=== PATIENT | female | born 1940 | race Caucasian/White ===

== ENCOUNTER 2018-08-31 12:47 | Inpatient (IN) | payer OTHER ==
--- OUTSIDE RECORDS SUMMARY | 2018-08-31 16:20 | XMS REPORT | Encounter Summary ---
:1940 Author Care Team Providers Name Role Phone Roxanne Mercer Primary Care Provider [phone] Reason for Visit Follow Up Visit Instructions 1. Ascites ascites: care instructions ultrasound guided paracentesis Discussion Note: None recorded. Plan of Care Reminders Provider Appointments None recorded. Lab None recorded. Referral None recorded. Procedures None recorded. Surgeries Ultrasound [place] Guided [facility]acentesis [facility] Imaging None recorded. Medications Name Start Date BD Ultra-Fine Mini Pen Needle 31 gauge x 3/16" fluconazole 150 mg tablet furosemide 40 mg tablet lactulose 10 gram/15 mL oral solution Lantus Solostar U-100 Insulin 100 unit/mL (3 mL) subcutaneous pen lisinopril 20 mg tablet lovastatin 10 mg tablet meclizine 25 mg tablet metformin 1,000 mg tablet metoprolol succinate ER 25 mg tablet,extended release 24 hr spironolactone 100 mg tablet Tradjenta 5 mg tablet tramadol 50 mg tablet Victoza 2-José Manuel 0.6 mg/0.1 mL (18 mg/3 mL) subcutaneous pen injector Medications Administered None recorded. Vitals Height Weight BMI Blood Pressure 5 ft 2 in 173 lbs 31.6 kg/m2 143/53 mm[Hg] Lab Results None recorded. Allergies Code Code System Name Reaction Severity Status Onset NKDA Problems No Known Problems Procedures Date Name Performed by 12/31/2017 Peritoneocentesis, Abdominal Information not available Paracentesis, or Peritoneal Lavage (Surg) 04/06/2016 Egd Biopsy Single/multiple Information not available 04/06/2016 Colonoscopy with Biopsy Information not available 02/01/2016 Egd Biopsy Single/multiple Information not available Lap Cholecystectomy Information not available Vaccine List None recorded. Social History Smoking Status Never Smoker Past Encounters 04/11/2018 Ascites Lucio Eddy, DO: [address] [facility], [address], [place] [address], Ph. [phone] History of Present Illness Abdominal Pain Reported By: Patient Abdominal Pain: Location: LLQ, LUQ, RLQ, RUQ; abdominal bloating/fluid. Quality: bloating. Severity: moderate. Duration: constant. Onset/Timing: worse. Modifying Factors: nothing gives relief. Associated Symptoms: no fever, no chills, no blood in the urine, no heartburn, no shortness of breath Review of Systems General Surgery ROS Reported By: Patient Constitutional: Constitutional: no fever, no night sweats, no significant weight gain, no significant weight loss, no exercise intolerance Eyes: Eyes: no dry eyes, no irritation, no vision change ENMT: Ears: no difficulty hearing, no ear pain. Nose: no frequent nosebleeds, no nose/sinus problems. Mouth/Throat: no sore throat, no bleeding gums, no snoring, no dry mouth, no mouth ulcers, no oral abnormalities, no teeth problems, No Post Nasal Dripping, Constantly clearing the throat, hiccups, itching throat, (normal) weak voice: constant Respiratory: Respiratory: no cough, no wheezing, no shortness of breath, no coughing up blood Cardiovascular: Cardiovascular: no chest pain, no arm pain on exertion, no shortness of breath when walking, no shortness of breath when lying down, no palpitations, no known heart murmur Gastrointestinal: Gastrointestinal: no abdominal pain, no vomiting, normal appetite, no diarrhea, not vomiting blood Genitourinary: Genitourinary: no incontinence, no difficulty urinating, no hematuria, no increased frequency Musculoskeletal: Musculoskeletal: no muscle aches, no muscle weakness, no arthralgias/joint pain, no back pain, no swelling in the extremities Integumentary: Skin: no abnormal mole, no jaundice, no rashes Neurologic: Neurologic: no loss of consciousness, no weakness, no numbness, no seizures, no dizziness, no headaches Physical Exam General Surgery Exam ([facility]) Reported By: Patient Head: Head: normocephalic, atraumatic Neck: Neck: no enlargement, no jugular venous distention, no lymphadenopathy Breast/Thorax: Breast: unlabored Cardiovascular: Heart Auscultation: regular rate and rhythm, no murmurs, no gallops, no rubs Lungs: CTAB breath sounds normal, good air movement, clear to auscultation, no wheezing, no rales/crackles, no rhonchi Back: Lumbar / Lumbosacral Spine normal flexion, normal extension, no spasms, palpation tenderness none Abdomen: Inspection and Palpation: soft, no tenderness, no masses, distended. Hernia: none palpable Neurologic: Cranial Nerves: grossly intact
--- OUTSIDE RECORDS SUMMARY | 2018-08-31 16:20 | XMS REPORT | Continuity of Care Document ---
:1940 Author Organization [facility] Address [address] [place] [address] Phone Unavailable Care Team Providers Name Role Phone CASEY HOLLAND MD Primary Care Physician Insurance Providers Guarantor Stephanie Henao Address [address] [place] [address] Email [email or web address] Medicare Policy Number [id number] Subscriber's Name Stephanie Henao Relationship Self / Same As Patient Group Number NA Group Name NA Payer [facility] Claims Policy Number [id number] Subscriber's Name Stephanie Henao Relationship Self / Same As Patient Group Number PLAN G Group Name NA Advance Directives Directive Response Recorded Date/Time Advance Directive on File No 01/28/18 3:25pm Patient/Family Given Education Material R/T Y - 01/28/18...[place] 01/28/18 3: 25pm Directives? Chief Complaint and Reason for Visit Chief Complaint HEPATIC ENCEPHALOPATHY/CIRRHOSIS OF LIVER Reason for Visit Altered mental status Ascites Altered mental status Ascites Cirrhosis of liver Diabetes type 2, uncontrolled Renal insufficiency Problems Medical Problem Onset Date Status Altered mental status Unknown Ascites Unknown Cirrhosis of liver Unknown Diabetes type 2, uncontrolled Unknown Peptic ulcer disease Unknown Acute Renal insufficiency Unknown Severe anemia Unknown Acute Upper gastrointestinal bleed Unknown Acute Past Problems Medical Problem Onset Date Status Cirrhosis of liver Unknown Acute Hepatic encephalopathy Unknown Acute Medications Current Home Medications Medication Dose Units Route Directions Days Qty Instructions Start Date Furosemide 1 Tab ORAL Daily 90 (Lasix 40 Mg*) Tablet 40 Mg Tab Insulin Glargine 30 U SUBCUTANEOUS Twice A Day * (Lantus Solostar *) Inj Linagliptin * 1 Tab ORAL Daily 90 (Tradjenta 5 Mg Tablet *) 5 Mg Tab Lovastatin 10 Mg ORAL Once Daily (Lovastatin 20 At Bedtime Mg (Mevacor) *) 20 Mg Tab Spironolactone 1 Tab ORAL Daily 30 (Spironolactone Tablet 100 Mg *) 100 Mg Tab Past Home Medications Medication Directions Ordered Status Liraglutide (Victoza) 18 Mg/3 Ml Inj, 1.2 Mg Daily Discontinued Subcutaneous Lisinopril (Prinivil 20 Mg*) 20 Mg Tab, 1 Tab Oral Daily Discontinued Metformin Hcl (Glucophage 1000 Mg *) 1 000 Tab, 1 Twice A Day Discontinued Tab Oral Social History Social History Problem Response Recorded Date/Time Onset Date Status Hx Alcohol Use No 01/28/2018 3:31pm Not Applicable Not Applicable Smoking Status Start Date Stop Date Never smoker Hospital Discharge Instructions No hospital discharge instruction information available. Plan of Care Discharge Date 01/31/18 10:57am Disposition HOME HEALTH SERVICE Instructions/Education Provided Hepatic Encephalopathy Cirrhosis Rifaximin tablets Paracentesis Lactulose oral solution Forms Provided Portal Welcome Letter Prescriptions See Medication Section Care Plan and Goals lactulose 20gm /30 ml bid [id number] mg po bid f/u within [address] dan Functional Status No functional status information available. Allergies, Adverse Reactions, Alerts No known allergies. Immunizations No immunization information available. Vital Signs Acute Vital Signs Vital Response Date/Time Blood Pressure 127/50 mm Hg 01/31/2018 10:36am Pulse Pulse Rate (adult) 86 beats per minute (60 - 100) 01/31/2018 10:36am Respiratory Rate 19 breaths per minute (10 - 24) 01/31/2018 8:30am Temperature Source Oral 01/31/2018 8:30am Height 5 ft 6 in 01/28/2018 11:06am Weight 169.13 lb 01/31/2018 4:52am Body Mass Index 27.2 kg/m^2 01/31/2018 4:52am Results Laboratory Results Test Name Result Units Flags Reference Collection Result Comments Date/Time Date/Time White Blood 4.4 K/ul 4.0-11.5 01/31/2018 01/31/2018 Count 4:36am 5:13am Red Blood Count 3.75 M/ul L 3.80-5.20 01/31/2018 01/31/2018 4:36am 5:13am Hemoglobin 10.7 g/dl 10.5-15.7 01/31/2018 01/31/2018 4:36am 5:13am Hematocrit 32.6 % L 34.0-50.0 01/31/2018 01/31/2018 4:36am 5:13am Mean Corpuscular 87.1 fl 78-98 01/31/2018 01/31/2018 Volume 4:36am 5:13am Mean Corpuscular 28.5 pg 26.2-33.4 01/31/2018 01/31/2018 Hemoglobin 4:36am 5:13am Mean Corpuscular 32.7 g/dl 31.5-36.2 01/31/2018 01/31/2018 Hemoglobin 4:36am 5:13am Concent Red Cell 15.2 % 11.5-15.5 01/31/2018 01/31/2018 Distribution 4:36am 5:13am Width Platelet Count 168 K/ul 137-338 01/31/2018 01/31/2018 4:36am 5:13am Mean Platelet 5.8 fl L 8.4-11.8 01/31/2018 01/31/2018 Volume 4:36am 5:13am Neutrophils (%) 79.1 % 44.4-80.1 01/31/2018 01/31/2018 (Auto) 4:36am 5:13am Lymphocytes (%) 7.4 % L 10.0-50.0 01/31/2018 01/31/2018 (Auto) 4:36am 5:13am Monocytes (%) 10.4 % 3.6-12.04 01/31/2018 01/31/2018 (Auto) 4:36am 5:13am Eosinophils (%) 1.6 % 0.0-5.41 01/31/2018 01/31/2018 (Auto) 4:36am 5:13am Basophils (%) 1.5 % H 0.0-0.79 01/31/2018 01/31/2018 (Auto) 4:36am 5:13am Prothrombin Time 13.0 SECONDS H 10.3-12.3 01/28/2018 01/28/2018 12:03pm 12:25pm THERAPEUTIC LEVEL: 1.5 to 1.9 times normal range of PT Prothromb Time 1.19 01/28/2018 01/28/2018 International 12:03pm 12:25pm Recommended therapeutic range for patients receiving Ratio warfarin (coumadin) therapy: INR is 2.0 to 3.0 Recommended range for patients with mechanical prosthetic heart valves: INR is 2.5 to 3.5 Activated 27.8 SECONDS 22.5-37.0 01/28/2018 01/28/2018 Partial 12:03pm 12:25pm Thromboplast Time Urine Color YELLOW 01/28/2018 01/28/2018 12:25pm 12:45pm Urine Appearance CLEAR CLEAR 01/28/2018 01/28/2018 12:25pm 12:45pm Urine Glucose NEGATIVE NEGATIVE 01/28/2018 01/28/2018 12:25pm 12:45pm Urine Bilirubin NEGATIVE NEGATIVE 01/28/2018 01/28/2018 12:25pm 12:45pm Urine Ketones TRACE NEGATIVE 01/28/2018 01/28/2018 12:25pm 12:45pm Urine Specific 1.027 1.003-1.03 01/28/2018 01/28/2018 [place] 0 12:25pm 12:45pm Urine Blood NEGATIVE NEGATIVE 01/28/2018 01/28/2018 12:25pm 12:45pm Urine pH 5.500 5-9 01/28/2018 01/28/2018 12:25pm 12:45pm Urine Protein 1+ (30 H NEGATIVE 01/28/2018 01/28/2018 mg/dL) 12:25pm 12:45pm Urine 4.0-6.0 mg/dL H 0.2-1.0 01/28/2018 01/28/2018 Urobilinogen 12:25pm 12:45pm Urine Nitrate NEGATIVE NEGATIVE 01/28/2018 01/28/2018 12:25pm 12:45pm Urine Leukocyte NEGATIVE NEGATIVE 01/28/2018 01/28/2018 Esterase 12:25pm 12:45pm Urine RBC <1 /hpf 0-5 01/28/2018 01/28/2018 12:25pm 12:53pm Urine WBC 1-5 /hpf 0-5 01/28/2018 01/28/2018 12:25pm 12:53pm Urine Epithelial 6-10 /hpf 0-5 01/28/2018 01/28/2018 Cells 12:25pm 12:53pm Urine Bacteria None /hpf None 01/28/2018 01/28/2018 Detected Detect 12:25pm 12:53pm Urine Casts >50 /lpf H None 01/28/2018 01/28/2018 Detect 12:25pm 12:53pm Urine Culture NO 01/28/2018 01/28/2018 Reflexed 12:25pm 12:53pm Urine Pathogenic Cellular /hpf A None 01/28/2018 01/28/2018 Casts casts Detect 12:25pm 12:53pm (1-5) POC Capillary 165 mg/dL H 70.0 - 110 01/31/2018 01/31/2018 Blood Glucose 7:50am 7:52am (Chem) Random Glucose 206 mg/dL H 82-115 01/31/2018 01/31/2018 4:36am 5:32am Blood Urea 31 mg/dL H 8-23 01/31/2018 01/31/2018 Nitrogen 4:36am 5:32am Serum Osmolality 279 L 280-300 01/31/2018 01/31/2018 4:36am 5:32am Creatinine 1.3 mg/dL H 0.50-0.90 01/31/2018 01/31/2018 4:36am 5:32am Glomerular 39.82 L 01/31/2018 01/31/2018 GFR RESULTS ARE REPORTED IN mL/min/1.73m2. Filtration Rate 4:36am 5:32am Calc Normal GFR: >60mL/min Moderately decreased GFR: 30-59 mL/min Severely decreased GFR: 15-29 mL/min Kidney Failure (or Dialysis): <15 mL/min The calculated eGFR is not valid for patients younger than 18 years or older than 75 years. BUN/Creatinine 23.8 H 12-20 01/31/2018 01/31/2018 Ratio 4:36am 5:32am Sodium Level 133 mmol/L L 135-145 01/31/2018 01/31/2018 4:36am 5:32am Potassium Level 4.0 mmol/L 3.5-5.2 01/31/2018 01/31/2018 4:36am 5:32am Chloride Level 100 mmol/L 98-108 01/31/2018 01/31/2018 4:36am 5:32am Carbon Dioxide 22 mmol/L 21-32 01/31/2018 01/31/2018 Level 4:36am 5:32am Anion Gap 15.0 mEq/L 12-20 01/31/2018 01/31/2018 4:36am 5:32am Calcium Level 8.9 mg/dL 8.8-10.2 01/31/2018 01/31/2018 4:36am 5:32am Total Protein 6.6 g/dL 6.6-8.7 01/31/2018 01/31/2018 4:36am 5:32am Albumin 2.8 g/dL L 3.5-5.2 01/31/2018 01/31/2018 4:36am 5:32am Globulin 3.8 gm/dL 01/31/2018 01/31/2018 4:36am 5:32am Albumin/Globulin 0.7 >1.0 01/31/2018 01/31/2018 Ratio 4:36am 5:32am Total Bilirubin 1.7 mg/dL H 0.0-1.2 01/31/2018 01/31/2018 4:36am 5:32am Aspartate Amino 32 U/L 15-32 01/31/2018 01/31/2018 Transf 4:36am 5:32am (AST/SGOT) Alanine 14 U/L 0-33 01/31/2018 01/31/2018 Aminotransferase 4:36am 5:32am (ALT/SGPT) Ammonia 70.8 umol/L H 11-51 01/31/2018 01/31/2018 Results have been broadcasted to patient's location and 4:36am 5:57am called to (David CALDERÓN By RONEN GAN 01/31/18 @0532 Results read back for confirmation. Hemoglobin A1c 4.8 % 4.0-6.0 01/28/2018 01/28/2018 2:15pm 2:32pm NK-Qbs-Q-Type 916 pg/mL H 0-450 01/31/2018 01/31/2018 Natriuretic 4:36am 5:32am Peptide Total Alkaline 108 U/L H 35-105 01/31/2018 01/31/2018 Phosphatase 4:36am 5:32am Creatine Kinase 40 U/L 20-180 01/28/2018 01/28/2018 12:03pm 12:33pm Troponin I < 0.30 ng/mL 0.0-0.5 01/28/2018 01/28/2018 Published clinical studies have shown elevations of cTnI in 12:03pm 12:34pm patients with myocardial injury, as seen in unstable angina pectoris, cardiac contusions, and heart transplants. Elevations have also been seen in patients with rhabdomyolysis and polymyositis. Elevated troponin levels point to myocardial injury, but are not necessarily indicative of an ischemic mechanism. The term CT should be used when there is evidence of cardiac damage, as detected by marker proteins in a clinical setting consistent with myocardial ischemia. If the clinical circumstance suggests that an ischemic mechanism is unlikely, other causes of cardiac injury should be considered. For diagnostic purposes, the results should always be assessed in conjunction with the patient's medical history, clinical examination and other findings. Creatine Kinase 2.4 ng/ml 0.0-3.6 01/28/2018 01/28/2018 MB 12:03pm 12:34pm DIAGNOSTIC CITERIA: CKMB CKMB RELATIVE INDEX SUGGESTIVE OF NON-AMI < or=5 N/A WEINSTEIN ZONE (INCONCLUSIVE) > 5 < or=4 SUGGESTIVE OF AMI >5 > 4 Procedures Procedure Status Date Provider(s) ASSAY OF NATRIURETIC PEPTIDE Completed 12/24/17 ASSAY OF AMMONIA Completed 12/24/17 COMPREHEN METABOLIC PANEL Completed 12/24/17 COMPLETE CBC W/AUTO DIFF WBC Completed 12/24/17 THROMBOPLASTIN TIME PARTIAL Completed 12/24/17 ASSAY OF CREATININE Completed 12/24/17 PROTHROMBIN TIME Completed 12/24/17 ROUTINE VENIPUNCTURE Completed 12/24/17 ABD PARACENTESIS W/IMAGING Completed 12/31/17 GIULIANA BASURTO DO ASSAY GLUCOSE BLOOD QUANT Completed 12/31/17 ROUTINE VENIPUNCTURE Completed 12/31/17 HUMAN ALBUMIN INFUSION Completed 12/31/17 Ultrasound guidance for paracentesis Active 12/31/17 GIULIANA BASURTO DO Computed tomography of head without contrast Completed 01/28/18 ROSALIO CONRAD NP Ultrasound guidance for paracentesis Active 01/28/18 ROSALIO CONRAD DEOILING MACHINE OPERATOR X-ray of chest, single view Completed 01/29/18 CASEY HOLLAND MD Encounters Encounter Location Arrival/Admit Date Discharge/Depart Date Attending Provider Discharged [place] 01/28/18 2:09pm 01/31/18 10:57am CASEY HOLLAND [facility] Registered [place] 12/31/17 7:12am GIULIANA BASURTO [facility] Registered [place] 12/24/17 3:27pm CASEY HOLLAND [facility] Recent Diagnosis Altered mental status Ascites Altered mental status Ascites Cirrhosis of liver Diabetes type 2, uncontrolled Renal insufficiency
--- OUTSIDE RECORDS SUMMARY | 2018-08-31 16:20 | XMS REPORT ---
:1940 Author Organization [facility] Address [address] [place] [address] [place] [address] Care Team Providers Name Role Phone Unavailable Unavailable Unavailable Problems This patient has no known problems. Allergies, Adverse Reactions, Alerts This patient has no known allergies or adverse reactions. Medications This patient has no known medications.
--- OUTSIDE RECORDS SUMMARY | 2018-08-31 16:20 | XMS REPORT | Continuity of Care Document ---
:1940 Author Organization [facility] Address [address] [place] [phone] Phone Unavailable Care Team Providers Name Role Phone CASEY HOLLAND MD Primary Care Physician Insurance Providers Guarantor Stephanie Henao Address [address] [phone] [facility] Email [email or web address] Payer Medicare Policy Number [id number] Subscriber's Name Stephanie Henao Relationship Self / Same As Patient Group Number NA Group Name NA [facility] Policy Number [id number] Subscriber's Name Stephanie Henao Relationship Self / Same As Patient Group Number PLAN G Group Name NA Advance Directives Directive Response Recorded Date/Time Advance Directive on File No 06/02/18 2:34pm Name of Surrogate/Decision Maker NA 06/02/18 10:23am Patient/Family Given Education Material R/T Y - KR...06/02/18 06/02/18 2: 34pm Directives? Chief Complaint and Reason for Visit Chief Complaint ASCITES,UTI,HEPATIC ENCEPHALOPATHY Reason for Visit Ascites Cirrhosis of liver Diabetes type 2, uncontrolled Renal insufficiency Hyponatremia Cirrhosis of liver Hyponatremia Problems Medical Problem Onset Date Status Altered mental status Unknown Ascites Unknown Change in mental status Unknown Cirrhosis of liver Unknown Diabetes type 2, uncontrolled Unknown Hyponatremia Unknown Peptic ulcer disease Unknown Acute Renal insufficiency Unknown Severe anemia Unknown Acute Upper gastrointestinal bleed Unknown Acute Past Problems Medical Problem Onset Date Status Cirrhosis of liver Unknown Acute Hepatic encephalopathy Unknown Acute Hepatic encephalopathy Unknown Acute Hepatic encephalopathy Unknown Acute Lactic acidemia Unknown Acute UTI (urinary tract infection) Unknown Acute Medications Current Home Medications Medication Dose Units Route Directions Days Qty Instructions Start Date Furosemide 1 Tab ORAL Daily 90 (Lasix 40 Mg*) Tablet 40 Mg Tab Insulin 30 U SUBCUTANEOUS Twice A Day Glargine * (Lantus Solostar *) Inj Linagliptin * 1 Tab ORAL Daily 90 (Tradjenta 5 Tablet Mg *) 5 Mg Tab Lovastatin 10 Mg ORAL Once Daily At (Lovastatin 20 Bedtime Mg (Mevacor) *) 20 Mg Tab Rifaximin 1 Tab ORAL Twice A Day 14 28 (Xifaxan 550 Days Tablet Mg *) 550 Mg Tab Past Home Medications Medication Directions Ordered Status Liraglutide (Victoza) 18 Mg/3 Ml Inj, 1.2 Mg Daily Discontinued Subcutaneous Lisinopril (Prinivil 20 Mg*) 20 Mg Tab, 1 Tab Oral Daily Discontinued Metformin Hcl (Glucophage 1000 Mg *) 1 000 Tab, 1 Twice A Day Discontinued Tab Oral Spironolactone (Spironolactone 100 Mg *) 100 Mg Tab, Daily Discontinued 1 Tab Oral Social History Social History Problem Response Recorded Date/Time Onset Date Status Hx Alcohol Use No 06/02/2018 2:36pm Not Applicable Not Applicable Smoking Status Start Date Stop Date Never smoker Hospital Discharge Instructions No hospital discharge instruction information available. Plan of Care Discharge Date 06/05/18 3:22pm Disposition PATIENT DISCHARGE HOME OR SELF Instructions/Education Provided Hepatic Encephalopathy Ascites Urinary Tract Infection, Adult, [id number] Forms Provided Portal Welcome Letter Prescriptions See Medication Section Care Plan and Goals spironolactone 50 mg daily continue same dose of the lactulose ceftin 500 bid for 7 days Functional Status No functional status information available. Allergies, Adverse Reactions, Alerts No known allergies. Immunizations No immunization information available. Vital Signs Acute Vital Signs Vital Response Date/Time Blood Pressure 122/43 mm Hg 06/05/2018 12:19pm Pulse Pulse Rate (adult) 74 beats per minute (60 - 100) 06/05/2018 12:19pm Respiratory Rate 16 breaths per minute (10 - 24) 06/05/2018 12:19pm Temperature Source Core 06/05/2018 12:19pm Height 5 ft 6 in 06/02/2018 10:10am Weight 167.13 lb 06/05/2018 3:47am Body Mass Index 27.0 kg/m^2 06/05/2018 3:47am Results Laboratory Results Test Name Result Units Flags Reference Collection Result Comments Date/Time Date/Time Urine Potassium 43 mmol/L 04/18/2018 04/18/2018 7:06pm 7:28pm Urine Sodium 21 mmol/L 04/18/2018 04/18/2018 7:06pm 7:59pm Urine Creatinine 104.1 mg/dL 28-217 04/18/2018 04/18/2018 4:40pm 7:28pm White Blood 6.2 K/ul 4.0-11.5 06/05/2018 06/05/2018 Count 4:18am 4:50am Red Blood Count 3.02 M/ul L 3.80-5.20 06/05/2018 06/05/2018 4:18am 4:50am Hemoglobin 8.9 g/dl L 10.5-15.7 06/05/2018 06/05/2018 4:18am 4:50am Hematocrit 26.8 % L 34.0-50.0 06/05/2018 06/05/2018 4:18am 4:50am Mean Corpuscular 88.8 fl 78-98 06/05/2018 06/05/2018 Volume 4:18am 4:50am Mean Corpuscular 29.5 pg 26.2-33.4 06/05/2018 06/05/2018 Hemoglobin 4:18am 4:50am Mean Corpuscular 33.2 g/dl 31.5-36.2 06/05/2018 06/05/2018 Hemoglobin 4:18am 4:50am Concent Red Cell 14.2 % 11.5-15.5 06/05/2018 06/05/2018 Distribution 4:18am 4:50am Width Platelet Count 142 K/ul 137-338 06/05/2018 06/05/2018 4:18am 4:50am Mean Platelet 7.2 fl L 8.4-11.8 06/05/2018 06/05/2018 Volume 4:18am 4:50am Neutrophils (%) 81.6 % H 44.4-80.1 06/05/2018 06/05/2018 (Auto) 4:18am 4:50am Lymphocytes (%) 7.0 % L 10.0-50.0 06/05/2018 06/05/2018 (Auto) 4:18am 4:50am Monocytes (%) 9.8 % 3.6-12.04 06/05/2018 06/05/2018 (Auto) 4:18am 4:50am Eosinophils (%) 0.5 % 0.0-5.41 06/05/2018 06/05/2018 (Auto) 4:18am 4:50am Basophils (%) 1.1 % H 0.0-0.79 06/05/2018 06/05/2018 (Auto) 4:18am 4:50am Prothrombin Time 13.3 SECONDS H 10.3-12.3 06/03/2018 06/03/2018 3:51am 4:24am THERAPEUTIC LEVEL: 1.5 to 1.9 times normal range of PT Prothromb Time 1.22 06/03/2018 06/03/2018 International 3:51am 4:24am Recommended therapeutic range for patients receiving Ratio warfarin (coumadin) therapy: INR is 2.0 to 3.0 Recommended range for patients with mechanical prosthetic heart valves: INR is 2.5 to 3.5 Activated 28.8 SECONDS 22.5-37.0 06/03/2018 06/03/2018 Partial 3:51am 4:24am Thromboplast Time Urine Color YELLOW 06/02/2018 06/02/2018 10:30am 11:21am Urine Appearance HAZY A CLEAR 06/02/2018 06/02/2018 10:30am 11:21am Urine Glucose NEGATIVE NEGATIVE 06/02/2018 06/02/2018 10:30am 11:21am Urine Bilirubin NEGATIVE NEGATIVE 06/02/2018 06/02/2018 10:30am 11:21am Urine Ketones NEGATIVE NEGATIVE 06/02/2018 06/02/2018 10:30am 11:21am Urine Specific 1.020 1.003-1.03 06/02/2018 06/02/2018 [place] 0 10:30am 11:21am Urine Blood TRACE-INT H NEGATIVE 06/02/2018 06/02/2018 ACT 10:30am 11:21am Urine pH 5.500 5-9 06/02/2018 06/02/2018 10:30am 11:21am Urine Protein NEGATIVE NEGATIVE 06/02/2018 06/02/2018 10:30am 11:21am Urine 0.2 E.U./dL 0.2-1.0 06/02/2018 06/02/2018 Urobilinogen 10:30am 11:21am Urine Nitrate NEGATIVE NEGATIVE 06/02/2018 06/02/2018 10:30am 11:21am Urine Leukocyte 1+ SMALL H NEGATIVE 06/02/2018 06/02/2018 Esterase 10:30am 11:21am Urine RBC 4-6 /hpf H 0-5 06/02/2018 06/02/2018 10:30am 11:21am Urine WBC 15-19 /hpf H 0-5 06/02/2018 06/02/2018 10:30am 11:21am Urine Bacteria FULL /hpf H None 06/02/2018 06/02/2018 FIELD Detect 10:30am 11:21am Urine Casts HYALINE /lpf None 06/02/2018 06/02/2018 0-5 Detect 10:30am 11:21am Urine Culture YES 06/02/2018 06/02/2018 Reflexed 10:30am 11:21am Urine Squamous 0-5 /lpf 0-5 06/02/2018 06/02/2018 Epithelial Cells 10:30am 11:21am Urine Amorphous TRACE /lpf None Seen 06/02/2018 06/02/2018 Sediment 10:30am 11:21am POC Capillary 187 mg/dL H 70.0 - 110 06/05/2018 06/05/2018 Blood Glucose 11:25am 11:26am (Chem) Lactic Acid 3.42 mmoL/L H 0.5-2.2 06/02/2018 06/02/2018 Results have been broadcasted to patient's location and Level 1:15pm 1:41pm called to espinoza). By PETER LÓPEZ 06/02/18 @[id number] Results read back for confirmation. Random Glucose 201 mg/dL H 82-115 06/05/2018 06/05/2018 4:18am 5:08am Blood Urea 49 mg/dL H 8-23 06/05/2018 06/05/2018 Nitrogen 4:18am 5:08am Serum Osmolality 276 L 280-300 06/05/2018 06/05/2018 4:18am 5:08am Creatinine 2.9 mg/dL H 0.50-0.90 06/05/2018 06/05/2018 4:18am 5:08am Glomerular 15.78 L 06/05/2018 06/05/2018 GFR RESULTS ARE REPORTED IN mL/min/1.73m2. Filtration Rate 4:18am 5:08am Calc Normal GFR: >60mL/min Moderately decreased GFR: 30-59 mL/min Severely decreased GFR: 15-29 mL/min Kidney Failure (or Dialysis): <15 mL/min The calculated eGFR is not valid for patients younger than 18 years or older than 75 years. BUN/Creatinine 16.9 12-06/05/2018 06/05/2018 Ratio 4:18am 5:08am Sodium Level 128 mmol/L L* 135-145 06/05/2018 06/05/2018 Results have been broadcasted to patient's location and 4:18am 5:08am called to ([employer]). By ASHELY SCHWARTZ 06/05/18 @[id number] Results read back for confirmation. Potassium Level 3.4 mmol/L L 3.5-5.2 06/05/2018 06/05/2018 4:18am 5:08am Chloride Level 94 mmol/L L 98-108 06/05/2018 06/05/2018 4:18am 5:08am Carbon Dioxide 17 mmol/L L 21-32 06/05/2018 06/05/2018 Level 4:18am 5:08am Anion Gap 20.4 mEq/L H 12-06/05/2018 06/05/2018 4:18am 5:08am Calcium Level 8.7 mg/dL L 8.8-10.2 06/05/2018 06/05/2018 4:18am 5:08am Magnesium Level 1.9 mg/dL 1.6-2.4 06/02/2018 06/02/2018 11:04am 11:31am Total Protein 6.0 g/dL L 6.6-8.7 06/05/2018 06/05/2018 4:18am 5:08am Albumin 2.9 g/dL L 3.5-5.2 06/05/2018 06/05/2018 4:18am 5:08am Globulin 3.1 gm/dL 06/05/2018 06/05/2018 4:18am 5:08am Albumin/Globulin 0.9 >1.0 06/05/2018 06/05/2018 Ratio 4:18am 5:08am Total Bilirubin 1.2 mg/dL 0.0-1.2 06/05/2018 06/05/2018 4:18am 5:08am Aspartate Amino 20 U/L 15-32 06/05/2018 06/05/2018 Transf 4:18am 5:08am (AST/SGOT) Alanine 9 U/L 0-33 06/05/2018 06/05/2018 Aminotransferase 4:18am 5:08am (ALT/SGPT) Lipase 122 U/L H 13-60 06/02/2018 06/02/2018 11:04am 11:31am Ammonia 15.5 umol/L 11-51 06/04/2018 06/04/2018 8:09am 8:33am Hemoglobin A1c 5.2 % 4.0-6.0 06/02/2018 06/02/2018 11:20am 12:42pm TE-Gqp-M-Type 1998 pg/mL H 0-450 06/05/2018 06/05/2018 Natriuretic 4:18am 5:12am Peptide Total Alkaline 114 U/L H 35-105 06/05/2018 06/05/2018 Phosphatase 4:18am 5:08am Creatine Kinase 19 U/L L 20-180 06/02/2018 06/02/2018 11:04am 11:31am Troponin I < 0.30 ng/mL 0.0-0.5 06/02/2018 06/02/2018 Published clinical studies have shown elevations of cTnI in 11:04am 11:31am patients with myocardial injury, as seen in unstable angina pectoris, cardiac contusions, and heart transplants. Elevations have also been seen in patients with rhabdomyolysis and polymyositis. Elevated troponin levels point to myocardial injury, but are not necessarily indicative of an ischemic mechanism. The term VA should be used when there is evidence [...] clinical examination and other findings. Creatine Kinase 1.5 ng/ml 0.0-3.6 06/02/2018 06/02/2018 MB 11:04am 11:32am DIAGNOSTIC CITERIA: CKMB CKMB RELATIVE INDEX SUGGESTIVE OF NON-AMI < or=5 N/A WEINSTEIN ZONE (INCONCLUSIVE) > 5 < or=4 SUGGESTIVE OF AMI >5 > 4 Myoglobin 56 ng/mL 25-58 06/02/2018 06/02/2018 11:04am 11:31am Microbiology Results Procedure Source Organism/Result Collection Result Result Status Date/Time Date/Time Urine Culture Urine,Clean KLEBSIELLA 06/02/2018 06/04/2018 Final Catch PNEUMONIAE 10:30am 8:12am Blood Culture Blood SPECIMEN HAS BEEN 06/05/2018 06/05/2018 Preliminary RECEIVED IN LAB AND 2:30pm 2:37pm IS IN PROGRESS. Procedures Procedure Status Date Provider(s) TTE W/DOPPLER COMPLETE Completed 04/12/18 ASSAY GLUCOSE BLOOD QUANT Completed 04/12/18 ROUTINE VENIPUNCTURE Completed 04/12/18 ABD PARACENTESIS W/IMAGING Completed 04/12/18 GIULIANA BASURTO DO HUMAN ALBUMIN INFUSION Completed 04/12/18 ASSAY OF URINE CREATININE Completed 04/18/18 ASSAY OF URINE SODIUM Completed 04/18/18 ASSAY OF URINE POTASSIUM Completed 04/18/18 ABD PARACENTESIS W/IMAGING Completed 04/26/18 GIULIANA BASURTO DO HUMAN ALBUMIN INFUSION Completed 04/26/18 ASSAY OF NATRIURETIC PEPTIDE Completed 04/25/18 ASSAY OF AMMONIA Completed 04/25/18 COMPREHEN METABOLIC PANEL Completed 04/25/18 COMPLETE CBC W/AUTO DIFF WBC Completed 04/25/18 THROMBOPLASTIN TIME PARTIAL Completed 04/25/18 PROTHROMBIN TIME Completed 04/25/18 ROUTINE VENIPUNCTURE Completed 04/25/18 Completed 04/25/18 ASSAY OF AMMONIA Completed 05/08/18 COMPREHEN METABOLIC PANEL Completed 05/08/18 GLYCOSYLATED HEMOGLOBIN TEST Completed 05/08/18 COMPLETE CBC W/AUTO DIFF WBC Completed 05/08/18 THROMBOPLASTIN TIME PARTIAL Completed 05/08/18 PROTHROMBIN TIME Completed 05/08/18 ROUTINE VENIPUNCTURE Completed 05/08/18 ABD PARACENTESIS W/IMAGING Completed 05/24/18 GIULIANA BASURTO DO HUMAN ALBUMIN INFUSION Completed 05/24/18 HUMAN ALBUMIN INFUSION Completed 05/24/18 Ultrasound guidance for paracentesis Completed 04/12/18 GIULIANA BASURTO DO Ultrasound guidance for paracentesis Active 04/26/18 GIULIANA BASURTO DO Ultrasound guidance for paracentesis Active 05/24/18 GIULIANA BASURTO DO Computed tomography of head without contrast Completed 06/02/18 ROSALIO CONRAD NP X-ray of chest, single view Completed 06/02/18 ROSALIO CONRAD NP Ultrasound guidance for paracentesis Active 06/02/18 ROSALIO CONRAD NP Encounters Encounter Location Arrival/Admit Date Discharge/Depart Date Attending Provider Discharged Dorothy 06/02/18 12:02pm 06/05/18 3:22pm SKYLER [facility] Registered Dorothy 05/24/18 8:42am GIULIANA BASURTO [facility] Registered Dorothy 05/08/18 10:29am JacqueVITA [facility] Registered Dorothy 04/26/18 8:01am GIULIANA BASURTO [facility] Registered Dorothy 04/25/18 4:23pm JacqueVITA [facility] Registered Dorothy 04/18/18 6:54pm JacqueVITA [facility] Registered Dorothy 04/12/18 10:13am GIULIANA BASURTO [facility] Registered Dorothy 04/12/18 9:39am GUSTABO [facility] Recent Diagnosis Ascites Cirrhosis of liver Diabetes type 2, uncontrolled Renal insufficiency Hyponatremia Cirrhosis of liver Hyponatremia
--- OUTSIDE RECORDS SUMMARY | 2018-08-31 16:21 | XMS REPORT | Continuity of Care Document ---
:1940 Author Organization [facility] Address [address] [place] [address] Phone Unavailable Care Team Providers Name Role Phone CASEY HOLLAND MD Primary Care Physician Insurance Providers Guarantor Stephanie Henao Address [address] [place] [address] Email [email or web address] Medicare Policy Number [id number] Subscriber's Name Stephanie Henao Relationship Self / Same As Patient Group Number NA Group Name NA [facility]ayer [facility] Claims Policy Number [id number] Subscriber's Name Stephanie Henao Relationship Self / Same As Patient Group Number PLAN G Group Name NA Advance Directives Directive Response Recorded Date/Time Advance Directive on File Yes 08/27/18 7:00pm Name of Surrogate/Decision Maker NA 08/27/18 4:19pm Patient/Family Given Education Material R/T Y - KR...08/27/18 08/27/18 7: 00pm Directives? Chief Complaint and Reason for Visit Chief Complaint CIRRHOSIS OF LIVER,ACUTE ON CHRONIC RENAL FAILURE Reason for Visit Ascites Cirrhosis of liver Diabetes type 2, uncontrolled Hyponatremia Hepatorenal failure Change in mental status Altered mental status Acute on chronic renal failure Problems Medical Problem Onset Date Status Altered mental status Unknown Ascites Unknown Acute Change in mental status Unknown Cirrhosis of liver Unknown Chronic Diabetes type 2, uncontrolled Unknown Chronic Hepatorenal failure Unknown Acute Hyponatremia Unknown Acute Peptic ulcer disease Unknown Acute Renal insufficiency Unknown Severe anemia Unknown Acute Upper gastrointestinal bleed Unknown Acute Past Problems Medical Problem Onset Date Status Acute on chronic renal failure Unknown Acute Acute renal failure Unknown Acute Anasarca Unknown Acute Cirrhosis of liver Unknown Acute Hepatic encephalopathy Unknown Acute Hepatic encephalopathy Unknown Acute Hepatic encephalopathy Unknown Acute Hepatic encephalopathy Unknown Acute Lactic acidemia Unknown Acute Metabolic acidosis Unknown Acute UTI (urinary tract infection) Unknown Acute UTI (urinary tract infection) Unknown Acute Medications Current Home Medications Medication Dose Units Route Directions Days Qty Instructions Start Date Lactulose 60 Ml ORAL Three Times A (Cephulac 10 Day Gm/15ML *) 10 Gm/15 Ml Syrp Lovastatin 10 Mg ORAL Once Daily At (Lovastatin 20 Mg Bedtime (Mevacor) *) 20 Mg Tab Magnesium 30 Ml ORAL Twice Daily As Hydroxide (Milk Needed as Of Magnesia *) 30 needed for Ml Susp Constipation Mirtazapine 1 Tab ORAL Once Daily At 30 Days 30 Tablet (Mirtazapine 15 Bedtime Mg *) 15 Mg Tab Pantoprazole 40 Mg ORAL Once Daily 30 Days 30 Tablet Sodium (Protonix Ec *) 40 Mg Tab Rifaximin 1 Tab ORAL Twice A Day 14 Days 28 Tablet (Xifaxan 550 Mg *) 550 Mg Tab Spironolactone 25 Mg ORAL Daily 30 Days 30 Tablet (Aldactone *) 25 Mg Tab Past Home Medications Medication Directions Ordered Status Furosemide (Lasix 40 Mg*) 40 Mg Tab, 1 Tab Oral Daily Discontinued Insulin Glargine * (Lantus Solostar *) Inj, 30 U Twice A Day Discontinued Subcutaneous Linagliptin * (Tradjenta 5 Mg *) 5 Mg Tab, 1 Tab Daily Discontinued Oral Liraglutide (Victoza) 18 Mg/3 Ml Inj, 1.2 Mg Daily Discontinued Subcutaneous Lisinopril (Prinivil 20 Mg*) 20 Mg Tab, 1 Tab Oral Daily Discontinued Metformin Hcl (Glucophage 1000 Mg *) 1 000 Tab, 1 Twice A Day Discontinued Tab Oral Pantoprazole * (Protonix Ec *) 20 Mg Tab, 1 Tab Oral Daily Discontinued Spironolactone (Spironolactone 100 Mg *) 100 Mg Tab, Daily Discontinued 1 Tab Oral Social History Social History Problem Response Recorded Date/Time Onset Date Status Hx Alcohol Use No 08/27/2018 7:00pm Not Applicable Not Applicable Hx Physical Abuse No 08/27/2018 7:00pm Not Applicable Not Applicable Smoking Status Start Date Stop Date Never smoker Hospital Discharge Instructions No hospital discharge instruction information available. Plan of Care Discharge Date 08/31/18 2:55pm Disposition DC/TRANS. SHORT TERM GEN. HOSP Instructions/Education Provided Ascites Cirrhosis Forms Provided Portal Welcome Letter Prescriptions See Medication Section Functional Status No functional status information available. Allergies, Adverse Reactions, Alerts No known allergies. Immunizations No immunization information available. Vital Signs Acute Vital Signs Vital Response Date/Time Blood Pressure 139/51 mm Hg 08/31/2018 12:00pm Pulse Pulse Rate (adult) 72 beats per minute (60 - 100) 08/31/2018 12:00pm Respiratory Rate 18 breaths per minute (10 - 24) 08/31/2018 12:00pm Temperature Source Core 08/31/2018 12:00pm Height 5 ft 4 in 08/27/2018 1:56pm Weight 151.13 lb 08/31/2018 4:47am Body Mass Index 25.9 kg/m^2 08/31/2018 4:47am Results Laboratory Results Test Name Result Units Flags Reference Collection Result Comments Date/Time Date/Time Urine Epithelial <1 /hpf 0-5 07/24/2018 07/24/2018 Cells 8:50pm 9:38pm Urine Mucus 2+ /lpf None 07/24/2018 07/24/2018 Detect 8:50pm 9:38pm Urine Pathogenic WBC Casts /hpf A None 07/24/2018 07/24/2018 Casts (1-5) Detect 8:50pm 9:38pm Lactic Acid 5.51 mmoL/L H* 0.5-2.2 07/26/2018 07/26/2018 Results have been broadcasted to patient's location and Level 6:25pm 6:52pm called to ([facility]). By PETER LÓPEZ 07/26/18 @0551 Results read back for confirmation. Creatine Kinase 19 U/L L 20-180 07/24/2018 07/24/2018 10:18am 10:47am Troponin I < 0.30 ng/mL 0.0-0.5 07/24/2018 07/24/2018 Published clinical studies have shown elevations of cTnI in 10:18am 10:47am patients with myocardial injury, as seen in unstable angina pectoris, cardiac contusions, and heart transplants. Elevations have also been seen in patients with rhabdomyolysis and polymyositis. Elevated troponin levels point to myocardial injury, but are not necessarily indicative of an ischemic mechanism. The term TN should be used when there is evidence [...] clinical examination and other findings. Creatine Kinase 2.0 ng/ml 0.0-3.6 07/24/2018 07/24/2018 MB 10:18am 10:47am DIAGNOSTIC CITERIA: CKMB CKMB RELATIVE INDEX SUGGESTIVE OF NON-AMI < or=5 N/A WEINSTEIN ZONE (INCONCLUSIVE) > 5 < or=4 SUGGESTIVE OF AMI >5 > 4 JR-Ajx-R-Type 4407 pg/mL H 0-450 08/05/2018 08/05/2018 Natriuretic 8:56am 9:37am Peptide White Blood 7.0 K/ul 4.0-11.5 08/31/2018 08/31/2018 Count 7:20am 7:54am Red Blood Count 3.22 M/ul L 3.80-5.20 08/31/2018 08/31/2018 7:20am 7:54am Hemoglobin 8.9 g/dl L 10.5-15.7 08/31/2018 08/31/2018 7:20am 7:54am Hematocrit 28.5 % L 34.0-50.0 08/31/2018 08/31/2018 7:20am 7:54am Mean Corpuscular 88.5 fl 78-98 08/31/2018 08/31/2018 Volume 7:20am 7:54am Mean Corpuscular 27.6 pg 26.2-33.4 08/31/2018 08/31/2018 Hemoglobin 7:20am 7:54am Mean Corpuscular 31.2 g/dl L 31.5-36.2 08/31/2018 08/31/2018 Hemoglobin 7:20am 7:54am Concent Red Cell 16.1 % H 11.5-15.5 08/31/2018 08/31/2018 Distribution 7:20am 7:54am Width Platelet Count 116 K/ul L 137-338 08/31/2018 08/31/2018 7:20am 7:54am Mean Platelet 7.0 fl L 8.4-11.8 08/31/2018 08/31/2018 Volume 7:20am 7:54am Neutrophils (%) 78.2 % 44.4-80.1 08/31/2018 08/31/2018 (Auto) 7:20am 7:54am Lymphocytes (%) 8.0 % L 10.0-50.0 08/31/2018 08/31/2018 (Auto) 7:20am 7:54am Monocytes (%) 11.2 % 3.6-12.0 08/31/2018 08/31/2018 (Auto) 7:20am 7:54am Eosinophils (%) 1.4 % 0.0-5.4 08/31/2018 08/31/2018 (Auto) 7:20am 7:54am Basophils (%) 1.2 % H 0.0-0.79 08/31/2018 08/31/2018 (Auto) 7:20am 7:54am Prothrombin Time 13.5 SECONDS H 10.3-12.3 08/27/2018 08/27/2018 2:39pm 3:09pm THERAPEUTIC LEVEL: 1.5 to 1.9 times normal range of PT Prothromb Time 1.24 08/27/2018 08/27/2018 International 2:39pm 3:09pm Recommended therapeutic range for patients receiving Ratio warfarin (coumadin) therapy: INR is 2.0 to 3.0 Recommended range for patients with mechanical prosthetic heart valves: INR is 2.5 to 3.5 Activated 39.6 SECONDS H 22.5-37.0 08/27/2018 08/27/2018 Partial 2:39pm 3:09pm Thromboplast Time Urine Color YELLOW 08/27/2018 08/27/2018 3:20pm 3:48pm Urine Appearance SL CLOUDY A CLEAR 08/27/2018 08/27/2018 3:20pm 3:48pm Urine Glucose NEGATIVE NEGATIVE 08/27/2018 08/27/2018 3:20pm 3:48pm Urine Bilirubin NEGATIVE NEGATIVE 08/27/2018 08/27/2018 3:20pm 3:48pm Urine Ketones NEGATIVE NEGATIVE 08/27/2018 08/27/2018 3:20pm 3:48pm Urine Specific 1.020 1.003-1.03 08/27/2018 08/27/2018 [place] 0 3:20pm 3:48pm Urine Blood MODERATE H NEGATIVE 08/27/2018 08/27/2018 3:20pm 3:48pm Urine pH 6.000 5-9 08/27/2018 08/27/2018 3:20pm 3:48pm Urine Protein TRACE H NEGATIVE 08/27/2018 08/27/2018 3:20pm 3:48pm Urine 0.2 E.U./dL 0.2-1.0 08/27/2018 08/27/2018 Urobilinogen 3:20pm 3:48pm Urine Nitrate NEGATIVE NEGATIVE 08/27/2018 08/27/2018 3:20pm 3:48pm Urine Leukocyte MODERATE H NEGATIVE 08/27/2018 08/27/2018 Esterase 3:20pm 3:48pm Urine RBC 6-10 /hpf 0-5 08/27/2018 08/27/2018 3:20pm 3:48pm Urine WBC 15-19 /hpf H 0-5 08/27/2018 08/27/2018 3:20pm 3:48pm Urine Bacteria SMALL /hpf H None 08/27/2018 08/27/2018 (1+) Detect 3:20pm 3:48pm Urine Casts 6-10 /lpf H None 08/27/2018 08/27/2018 Detect 3:20pm 3:48pm Urine Culture YES 08/27/2018 08/27/2018 Reflexed 3:20pm 3:48pm Urine Squamous 0-5 /lpf 0-5 08/27/2018 08/27/2018 Epithelial Cells 3:20pm 3:48pm Urine Yeast 2+ /hpf H None 08/27/2018 08/27/2018 Detect 3:20pm 3:48pm Arterial Blood 7.30 phunit L 7.350 - 08/27/2018 08/27/2018 pH 7.450 4:10pm 5:07pm Arterial Blood 24 mmHg 23.0 - 08/27/2018 08/27/2018 Partial Pressure 33.0 4:10pm 5:07pm CO2 Arterial Blood 95 mmHg 83.0 - 108 08/27/2018 08/27/2018 Partial Pressure 4:10pm 5:07pm O2 Arterial Blood 14.0 mmol/l 18.0 - 08/27/2018 08/27/2018 HCO3 28.2 4:10pm 5:07pm POC Capillary 196 mg/dL H 70.0 - 110 08/31/2018 08/31/2018 Blood Glucose 11:46am 11:49am (Chem) Arterial Blood -14.7 mmol/l -2.0 - 2.3 08/27/2018 08/27/2018 Base Excess 4:10pm 7:56pm Arterial Blood 11.4 mmol/l 22.0 - 08/27/2018 08/27/2018 Total CO2 26.0 4:10pm 5:07pm Arterial Blood 98 % 94.0 - 08/27/2018 08/27/2018 This is a Oxygen 98.0 4:10pm 5:07pm calculated Saturation result. Oxygen Content 5.1 mmol/l 6.7 - 15.6 08/27/2018 08/27/2018 4:10pm 5:07pm Random Glucose 161 mg/dL H 82-115 08/31/2018 08/31/2018 7:20am 8:01am Blood Urea 87 mg/dL H* 8-23 08/31/2018 08/31/2018 Results have been broadcasted to patient's location and Nitrogen 7:20am 8:01am called to (STEVE KEYS). By ASHELY SCHWARTZ 08/31/18 @0758 Results read back for confirmation. Serum Osmolality 293 280-300 08/31/2018 08/31/2018 7:20am 8:01am Urine Chloride < 20 mmol/L 08/29/2018 08/29/2018 3:34pm 8:08pm Urine Potassium 33 mmol/L 08/29/2018 08/29/2018 3:34pm 3:52pm Urine Sodium 11 mmol/L 08/29/2018 08/29/2018 3:34pm 4:50pm Creatinine 6.3 mg/dL H* 0.50-0.90 08/31/2018 08/31/2018 Results have been broadcasted to patient's location and 7:20am 8:01am called to (JIAN KEYS). By ASHELY SCHWARTZ 08/31/18 @0759 Results read back for confirmation. Glomerular 6.44 L 08/31/2018 08/31/2018 GFR RESULTS ARE REPORTED IN mL /min/1.73m2. Filtration Rate 7:20am 8:01am Calc Normal GFR: >60mL/min Moderately decreased GFR: 30-59 mL/min Severely decreased GFR: 15-29 mL/min Kidney Failure (or Dialysis): <15 mL/min The calculated eGFR is not valid for patients younger than 18 years or older than 75 years. BUN/Creatinine 13.8 12-08/31/2018 08/31/2018 Ratio 7:20am 8:01am Sodium Level 131 mmol/L L 135-145 08/31/2018 08/31/2018 7:20am 8:01am Potassium Level 4.2 mmol/L 3.5-5.2 08/31/2018 08/31/2018 7:20am 8:01am Chloride Level 95 mmol/L L 98-108 08/31/2018 08/31/2018 7:20am 8:01am Carbon Dioxide 13 mmol/L L 21-32 08/31/2018 08/31/2018 Level 7:20am 8:01am Anion Gap 27.2 mEq/L H 12-08/31/2018 08/31/2018 7:20am 8:01am Calcium Level 9.3 mg/dL 8.8-10.2 08/31/2018 08/31/2018 7:20am 8:01am Phosphorus Level 6.0 mg/dL H 2.5-4.5 08/30/2018 08/30/2018 4:30am 5:38am Magnesium Level 2.6 mg/dL H 1.6-2.4 08/30/2018 08/30/2018 4:30am 5:38am Total Protein 5.7 g/dL L 6.6-8.7 08/29/2018 08/29/2018 6:44am 7:19am Albumin 3.5 g/dL 3.5-5.2 08/29/2018 08/29/2018 6:44am 7:19am Globulin 2.2 gm/dL 08/29/2018 08/29/2018 6:44am 7:19am Albumin/Globulin 1.6 >1.0 08/29/2018 08/29/2018 Ratio 6:44am 7:19am Total Bilirubin 2.5 mg/dL H 0.0-1.2 08/29/2018 08/29/2018 6:44am 7:19am Aspartate Amino 33 U/L H 15-32 08/29/2018 08/29/2018 Transf 6:44am 7:19am (AST/SGOT) Alanine 16 U/L 0-33 08/29/2018 08/29/2018 Aminotransferase 6:44am 7:19am (ALT/SGPT) Ammonia 73.8 umol/L H 11-51 08/27/2018 08/27/2018 2:39pm 3:27pm Total Alkaline 487 U/L H 35-105 08/29/2018 08/29/2018 Phosphatase 6:44am 7:19am Urine Creatinine 69.7 mg/dL 28-217 08/27/2018 08/27/2018 3:20pm 3:46pm Pending Laboratory Results Test Name Collection Date/Time Differential Comment 08/28/2018 4:02am Microbiology Results Procedure Source Organism/Result Collection Result Result Date/Time Date/Time Status Blood Culture Blood STAPHYLOCOCCUS 07/24/2018 07/29/2018 Final EPIDERMIDIS 11:34am 8:02am Urine Culture Urine,Clean KLEBSIELLA 07/24/2018 07/26/2018 Final Catch PNEUMONIAE 8:50pm 9:15am Procedures Procedure Status Date Provider(s) ABD PARACENTESIS W/IMAGING Completed 07/04/18 GIULIANA BASURTO DO US EXAM ABDOM COMPLETE Completed 07/04/18 HUMAN ALBUMIN INFUSION Completed 07/04/18 COMPREHEN METABOLIC PANEL Completed 07/18/18 ASSAY OF PHOSPHORUS Completed 07/18/18 ROUTINE VENIPUNCTURE Completed 07/18/18 METABOLIC PANEL TOTAL CA Completed 07/22/18 ROUTINE VENIPUNCTURE Completed 07/22/18 DRAINAGE OF PERITONEAL CAVITY, Completed 07/24/18 YRIS VIDES MD PERCUTANEOUS APPROACH DRAINAGE OF PERITONEAL CAVITY, Completed 07/29/18 YRIS VIDES MD PERCUTANEOUS APPROACH ULTRASONOGRAPHY OF ABDOMEN Completed 07/24/18 YRIS VIDES MD TRANSFUSE NONAUT RED BLOOD CELLS IN Completed 07/26/18 CASEY HOLLAND MD PERIPH VEIN, PERC ASSAY OF NATRIURETIC PEPTIDE Completed 08/05/18 ASSAY OF AMMONIA Completed 08/05/18 COMPREHEN METABOLIC PANEL Completed 08/05/18 COMPLETE CBC W/AUTO DIFF WBC Completed 08/05/18 ROUTINE VENIPUNCTURE Completed 08/05/18 Completed 08/05/18 ASSAY OF AMMONIA Completed 08/12/18 ROUTINE VENIPUNCTURE Completed 08/12/18 Completed 08/12/18 ASSAY OF AMMONIA Completed 08/19/18 ROUTINE VENIPUNCTURE Completed 08/19/18 Completed 08/19/18 ABD PARACENTESIS W/IMAGING Completed 08/22/18 GIULIANA BASURTO DO HUMAN ALBUMIN INFUSION Completed 08/22/18 ASSAY OF AMMONIA Completed 08/26/18 COMPLETE CBC W/AUTO DIFF WBC Completed 08/26/18 ASSAY OF PHOSPHORUS Completed 08/26/18 ROUTINE VENIPUNCTURE Completed 08/26/18 COMPREHEN METABOLIC PANEL Completed 08/26/18 COMPREHEN METABOLIC PANEL Completed 08/26/18 Completed 08/26/18 METABOLIC PANEL TOTAL CA Completed 08/27/18 COMPLETE CBC W/AUTO DIFF WBC Completed 08/27/18 ROUTINE VENIPUNCTURE Completed 08/27/18 Completed 08/27/18 Ultrasound guidance for paracentesis Active 07/04/18 GIULIANA BASURTO DO Abdominal ultrasound Completed 07/04/18 GIULIANA BASURTO DO X-ray of chest, single view Completed 07/24/18 ALAYNA SPARKS Ultrasound guidance for paracentesis Active 07/24/18 YRIS VIDES MD Ultrasound guidance for paracentesis Active 07/29/18 CASEY HOLLAND MD Ultrasound guidance for paracentesis Active 08/22/18 GIULIANA BASURTO DO X-ray of chest, single view Completed 08/29/18 BETSEY JAIMES MD Encounters Encounter Location Arrival/Admit Date Discharge/Depart Date Attending Provider Discharged [place] 08/27/18 4:47pm 08/31/18 2:55pm BETSEY JAIMES [facility] Registered [place] 08/27/18 7:55am CASEY HOLLAND [facility] Registered [place] 08/26/18 7:14am SKYLER [facility] Registered [place] 08/22/18 7:58am GIULIANA BASURTO [facility] Registered [place] 08/19/18 7:44am JacqueGORMAN, [facility] Registered [place] [facility] Reg[facility] [place] 08/05/18 7:20am JacqueGORMAN, [facility] Discharged [place] 07/24/18 11:30am 07/30/18 4:03pm [facility] Registered [place] 07/22/18 2:15pm CYNTHIA REYES [facility] Registered [place] 07/18/18 1:45pm CYNTHIA REYES [facility] Registered [place] 07/04/18 9:05am GIULIANA BASURTO [facility] Recent Diagnosis Ascites Cirrhosis of liver Diabetes type 2, uncontrolled Hyponatremia Hepatorenal failure Change in mental status Altered mental status Acute on chronic renal failure
--- OUTSIDE RECORDS SUMMARY | 2018-08-31 16:21 | XMS REPORT | Continuity of Care Document ---
:1940 Author Organization [facility] Address [address] [place] [address] Phone Unavailable Care Team Providers Name Role Phone CASEY HOLLAND MD Primary Care Physician Insurance Providers Guarantor Stephanie Henao Address [address] [phone] SPO Email [email or web address] Medicare Policy Number [id number] Subscriber's Name Stephanie Henao Relationship Self / Same As Patient Group Number NA Group Name NA Payer [facility] Claims Policy Number [id number] Subscriber's Name Stephanie Henao Relationship Self / Same As Patient Group Number PLAN G Group Name NA Advance Directives Directive Response Recorded Date/Time Advance Directive on File No 07/24/18 2:30pm Patient/Family Given Education Material R/T Y - 07/24/18....SBM 07/24/18 2: 30pm Directives? Chief Complaint and Reason for Visit Chief Complaint ACUTE RENAL FAILURE, HEPATIC ENCEPHALOPATHY, ASCIT Reason for Visit Altered mental status Ascites Cirrhosis of liver Diabetes type 2, uncontrolled Altered mental status Peptic ulcer disease Hepatorenal failure Hepatorenal failure Problems Medical Problem Onset Date Status Altered mental status Unknown Ascites Unknown Change in mental status Unknown Cirrhosis of liver Unknown Diabetes type 2, uncontrolled Unknown Hepatorenal failure Unknown Hyponatremia Unknown Peptic ulcer disease Unknown Acute Renal insufficiency Unknown Severe anemia Unknown Acute Upper gastrointestinal bleed Unknown Acute Past Problems Medical Problem Onset Date Status Acute renal failure Unknown Acute Cirrhosis of liver Unknown Acute Hepatic encephalopathy Unknown Acute Hepatic encephalopathy Unknown Acute Hepatic encephalopathy Unknown Acute Hepatic encephalopathy Unknown Acute Lactic acidemia Unknown Acute Metabolic acidosis Unknown Acute UTI (urinary tract infection) Unknown Acute Medications Current Home Medications Medication Dose Units Route Directions Days Qty Instructions Start Date Furosemide 1 Tab ORAL Daily 90 (Lasix 40 Tablet Mg*) 40 Mg Tab Insulin 30 U SUBCUTANEOUS Twice A Day Glargine * (Lantus Solostar *) Inj Lactulose 60 Ml ORAL Three Times A (Cephulac 10 Day Gm/15ML *) 10 Gm/15 Ml Syrp Lovastatin 10 Mg ORAL Once Daily At (Lovastatin Bedtime 20 Mg (Mevacor) *) 20 Mg Tab Rifaximin 1 Tab ORAL Twice A Day 14 Days 28 (Xifaxan 550 Tablet Mg *) 550 Mg Tab Past Home Medications Medication Directions Ordered Status Linagliptin * (Tradjenta 5 Mg *) 5 [...] Onset Date Status Hx Alcohol Use No 07/24/2018 2:32pm Not Applicable Not Applicable Hx Physical Abuse No 07/24/2018 2:32pm Not Applicable Not Applicable Smoking Status Start Date Stop Date Never smoker Hospital Discharge Instructions No hospital discharge instruction information available. Plan of Care Discharge Date 07/30/18 4:03pm Disposition DC/TRANS CARE HOME FACIL Instructions/Education Provided Hepatic Encephalopathy Ascites Acute Kidney Injury, Adult Cirrhosis Forms Provided Portal Welcome Letter Prescriptions See Medication Section Care Plan and Goals ceftin 500 bid for 5 days low sodium diet Functional Status No functional status information available. Allergies, Adverse Reactions, Alerts No known allergies. Immunizations No immunization information available. Vital Signs Acute Vital Signs Vital Response Date/Time Blood Pressure 145/65 mm Hg 07/30/2018 11:11am Pulse Pulse Rate (adult) 90 beats per minute (60 - 100) 07/30/2018 11:11am Respiratory Rate 17 breaths per minute (10 - 24) 07/30/2018 11:11am Temperature Source Temporal Artery Scan 07/30/2018 11:11am Results Laboratory Results Test Name Result Units Flags Reference Collection Result Comments Date/Time Date/Time Urine Squamous 0-5 /lpf 0-5 06/02/2018 06/02/2018 Epithelial Cells 10:30am 11:21am Urine Amorphous TRACE /lpf None Seen 06/02/2018 06/02/2018 Sediment 10:30am 11:21am Lipase 122 U/L H 13-60 06/02/2018 06/02/2018 11:04am 11:31am Hemoglobin A1c 5.2 % 4.0-6.0 06/02/2018 06/02/2018 11:20am 12:42pm Myoglobin 56 ng/mL 25-58 06/02/2018 06/02/2018 11:04am 11:31am Phosphorus Level 5.1 mg/dL H 2.5-4.5 07/18/2018 07/18/2018 1:55pm 3:03pm White Blood 4.5 K/ul 4.0-11.5 07/30/2018 07/30/2018 Count 4:01am 5:11am Red Blood Count 2.91 M/ul L 3.80-5.20 07/30/2018 07/30/2018 4:01am 5:11am Hemoglobin 8.4 g/dl L 10.5-15.7 07/30/2018 07/30/2018 4:01am 5:11am Hematocrit 26.4 % L 34.0-50.0 07/30/2018 07/30/2018 4:01am 5:11am Mean Corpuscular 90.6 fl 78-98 07/30/2018 07/30/2018 Volume 4:01am 5:11am Mean Corpuscular 28.8 pg 26.2-33.4 07/30/2018 07/30/2018 Hemoglobin 4:01am 5:11am Mean Corpuscular 31.7 g/dl 31.5-36.2 07/30/2018 07/30/2018 Hemoglobin 4:01am 5:11am Concent Red Cell 15.2 % 11.5-15.5 07/30/2018 07/30/2018 Distribution 4:01am 5:11am Width Platelet Count 84 K/ul L 137-338 07/30/2018 07/30/2018 4:01am 5:11am Mean Platelet 7.2 fl L 8.4-11.8 07/30/2018 07/30/2018 Volume 4:01am 5:11am Neutrophils (%) 82.8 % H 44.4-80.1 07/30/2018 07/30/2018 (Auto) 4:01am 5:11am Lymphocytes (%) 7.2 % L 10.0-50.0 07/30/2018 07/30/2018 (Auto) 4:01am 5:11am Monocytes (%) 7.8 % 3.6-12.04 07/30/2018 07/30/2018 (Auto) 4:01am 5:11am Eosinophils (%) 1.3 % 0.0-5.41 07/30/2018 07/30/2018 (Auto) 4:01am 5:11am Basophils (%) 1.0 % H 0.0-0.79 07/30/2018 07/30/2018 (Auto) 4:01am 5:11am Prothrombin Time 13.4 SECONDS H 10.3-12.3 07/24/2018 07/24/2018 10:18am 10:43am THERAPEUTIC LEVEL: 1.5 to 1.9 times normal range of PT Prothromb Time 1.23 07/24/2018 07/24/2018 International 10:18am 10:43am Recommended therapeutic range for patients receiving Ratio warfarin (coumadin) therapy: INR is 2.0 to 3.0 Recommended range for patients with mechanical prosthetic heart valves: INR is 2.5 to 3.5 Activated 29.9 SECONDS 22.5-37.0 07/24/2018 07/24/2018 Partial 10:18am 10:43am Thromboplast Time Urine Color YELLOW 07/24/2018 07/24/2018 8:50pm 9:31pm Urine Appearance SL CLOUDY A CLEAR 07/24/2018 07/24/2018 8:50pm 9:31pm Urine Glucose NEGATIVE NEGATIVE 07/24/2018 07/24/2018 8:50pm 9:31pm Urine Bilirubin NEGATIVE NEGATIVE 07/24/2018 07/24/2018 8:50pm 9:31pm Urine Ketones NEGATIVE NEGATIVE 07/24/2018 07/24/2018 8:50pm 9:31pm Urine Specific 1.016 1.003-1.03 07/24/2018 07/24/2018 [place] 0 8:50pm 9:31pm Urine Blood 2+ H NEGATIVE 07/24/2018 07/24/2018 (MODERATE 8:50pm 9:31pm ) Urine pH 5.500 5-9 07/24/2018 07/24/2018 8:50pm 9:31pm Urine Protein TRACE NEGATIVE 07/24/2018 07/24/2018 8:50pm 9:31pm Urine NORMAL mg/dL 0.2-1.0 07/24/2018 07/24/2018 Urobilinogen 8:50pm 9:31pm Urine Nitrate NEGATIVE NEGATIVE 07/24/2018 07/24/2018 8:50pm 9:31pm Urine Leukocyte 4+ H NEGATIVE 07/24/2018 07/24/2018 Esterase 8:50pm 9:31pm Urine RBC 6-10 /hpf H 0-5 07/24/2018 07/24/2018 8:50pm 9:38pm Urine WBC >50 /hpf H 0-5 07/24/2018 07/24/2018 8:50pm 9:38pm Urine Epithelial <1 /hpf 0-5 07/24/2018 07/24/2018 Cells 8:50pm 9:38pm Urine Bacteria TNTC (4+) /hpf H None 07/24/2018 07/24/2018 Detect 8:50pm 9:38pm Urine Casts 15-19 /lpf H None 07/24/2018 07/24/2018 Detect 8:50pm 9:38pm Urine Culture YES 07/24/2018 07/24/2018 Reflexed 8:50pm 9:31pm Urine Mucus 2+ /lpf None 07/24/2018 07/24/2018 Detect 8:50pm 9:38pm Urine Pathogenic WBC Casts /hpf A None 07/24/2018 07/24/2018 Casts (1-5) Detect 8:50pm 9:38pm POC Capillary 140 mg/dL H 70.0 - 110 07/30/2018 07/30/2018 Blood Glucose 11:12am 11:13am (Chem) Lactic Acid 5.51 mmoL/L H* 0.5-2.2 07/26/2018 07/26/2018 Results have been broadcasted to patient's location and Level 6:25pm 6:52pm called to ([facility]). By PETER LÓPEZ 07/26/18 @[id number] Results read back for confirmation. Random Glucose 154 mg/dL H 82-115 07/30/2018 07/30/2018 4:01am 5:34am Blood Urea 46 mg/dL H 8-23 07/30/2018 07/30/2018 Nitrogen 4:01am 5:34am Serum Osmolality 298 280-300 07/30/2018 07/30/2018 4:01am 5:34am Creatinine 3.5 mg/dL H 0.50-0.90 07/30/2018 07/30/2018 4:01am 5:34am Glomerular 12.70 L 07/30/2018 07/30/2018 GFR RESULTS ARE REPORTED IN mL/min/1.73m2. Filtration Rate 4:01am 5:34am Calc Normal GFR: >60mL/min Moderately decreased GFR: 30-59 mL/min Severely decreased GFR: 15-29 mL/min Kidney Failure (or Dialysis): <15 mL/min The calculated eGFR is not valid for patients younger than 18 years or older than 75 years. BUN/Creatinine 13.1 12-07/30/2018 07/30/2018 Ratio 4:01am 5:34am Sodium Level 142 mmol/L 135-145 07/30/2018 07/30/2018 4:01am 5:34am Potassium Level 3.3 mmol/L L 3.5-5.2 07/30/2018 07/30/2018 4:01am 5:34am Chloride Level 108 mmol/L 98-108 07/30/2018 07/30/2018 4:01am 5:34am Carbon Dioxide 13 mmol/L L 21-32 07/30/2018 07/30/2018 Level 4:01am 5:34am Anion Gap 24.3 mEq/L H 12-20 07/30/2018 07/30/2018 4:01am 5:34am Calcium Level 9.5 mg/dL 8.8-10.2 07/30/2018 07/30/2018 4:01am 5:34am Magnesium Level 2.0 mg/dL 1.6-2.4 07/26/2018 07/26/2018 4:53am 5:51am Total Protein 6.2 g/dL L 6.6-8.7 07/30/2018 07/30/2018 4:01am 5:34am Albumin 5.0 g/dL 3.5-5.2 07/30/2018 07/30/2018 4:01am 5:34am Globulin 1.2 gm/dL 07/30/2018 07/30/2018 4:01am 5:34am Albumin/Globulin 4.2 >1.0 07/30/2018 07/30/2018 Ratio 4:01am 5:34am Total Bilirubin 1.9 mg/dL H 0.0-1.2 07/30/2018 07/30/2018 4:01am 5:34am Aspartate Amino 15 U/L 15-32 07/30/2018 07/30/2018 Transf 4:01am 5:34am (AST/SGOT) Alanine 7 U/L 0-33 07/30/2018 07/30/2018 Aminotransferase 4:01am 5:34am (ALT/SGPT) Ammonia 21.2 umol/L 11-51 07/30/2018 07/30/2018 4:01am 5:22am CJ-Kcf-L-Type 6137 pg/mL H 0-450 07/30/2018 07/30/2018 Natriuretic 4:01am 5:31am Peptide Total Alkaline 111 U/L H 35-105 07/30/2018 07/30/2018 Phosphatase 4:01am 5:34am Creatine Kinase 19 U/L L 20-180 07/24/2018 [...] indicative of an ischemic mechanism. The term MA should be used when there is evidence [...] or=4 SUGGESTIVE OF AMI >5 > 4 Microbiology Results Procedure Source Organism/Result Collection Result Result Date/Time Date/Time Status Wound Culture Buttock CITROBACTER FREUNDII 06/05/2018 06/10/2018 Final 3:06pm 8:14am Blood Culture Blood STAPHYLOCOCCUS 07/24/2018 07/29/2018 Final EPIDERMIDIS 11:34am 8:02am Urine Culture Urine,Clean KLEBSIELLA 07/24/2018 07/26/2018 Final Catch PNEUMONIAE 8:50pm 9:15am Procedures Procedure Status Date Provider(s) ABD PARACENTESIS W/IMAGING Completed 06/13/18 GIULIANA BASURTO DO HUMAN ALBUMIN INFUSION Completed 06/13/18 METABOLIC PANEL TOTAL CA Completed 06/26/18 ROUTINE VENIPUNCTURE Completed 06/26/18 ASSAY OF AMMONIA Completed 06/26/18 COMPREHEN METABOLIC PANEL Completed 06/26/18 BLOOD CULTURE FOR BACTERIA Completed 06/26/18 COMPLETE CBC W/AUTO DIFF WBC Completed 06/26/18 ROUTINE VENIPUNCTURE Completed 06/26/18 ABD PARACENTESIS W/IMAGING Completed 07/04/18 GIULIANA BASURTO DO US EXAM ABDOM COMPLETE Completed 07/04/18 HUMAN ALBUMIN INFUSION Completed 07/04/18 COMPREHEN METABOLIC PANEL Completed 07/18/18 ASSAY OF PHOSPHORUS Completed 07/18/18 ROUTINE VENIPUNCTURE Completed 07/18/18 METABOLIC PANEL TOTAL CA Completed 07/22/18 ROUTINE VENIPUNCTURE Completed 07/22/18 Computed tomography of head without Completed 06/02/18 ROSALIO CONRAD NP contrast X-ray of chest, single view Completed 06/02/18 ROSALIO CONRAD NP Ultrasound guidance for paracentesis Active 06/02/18 ROSALIO CONRAD NP Ultrasound guidance for paracentesis Active 06/13/18 GIULIANA BASURTO DO Ultrasound guidance for paracentesis Active 07/04/18 GIULIANA BASURTO DO Abdominal ultrasound Completed 07/04/18 GIULIANA BASURTO DO X-ray of chest, single view Completed 07/24/18 ALAYNA SPARKS Ultrasound guidance for paracentesis Active 07/24/18 YRIS VIDES MD Ultrasound guidance for paracentesis Active 07/29/18 CASEY HOLLAND MD Encounters Encounter Location Arrival/Admit Date Discharge/Depart Date Attending Provider Discharged [place] 07/24/18 11:30am 07/30/18 4:03pm CASEY HOLLAND [facility] Registered [place] 07/22/18 2:15pm CYNTHIA REYES [facility] Registered [place] 07/18/18 1:45pm CYNTHIA REYES [facility] Registered [place] 07/04/18 9:05am GIULIANA BASURTO [facility] Registered [place] 06/26/18 8:05am CASEY HOLLAND [facility] Registered [place] 06/26/18 8:02am CYNTHIA REYES [facility] Registered [place] 06/13/18 11:27am GIULIANA BASURTO [facility] Discharged [place] 06/02/18 12:02pm 06/05/18 3:22pm CASEY HOLLAND [facility] Recent Diagnosis Altered mental status Ascites Cirrhosis of liver Diabetes type 2, uncontrolled Altered mental status Peptic ulcer disease Hepatorenal failure Hepatorenal failure
--- NOTE | 2018-08-31 16:29 | P.HP ---
Certification for Inpatient Patient admitted to: Inpatient Practitioner: I am a practitioner with admitting privileges, knowledge of patient current condition, hospital course, and medical plan of care. Services: Services provided to patient in accordance with Admission requirements found in Title 42 Section 412.3 of the Code of Federal Regulations Patient History Date of Service: 09/01/18 Reason for admission: pt was transferred from another hospital for HD History of Present Illness: 77 y/o woman with PMhx of DM,CKD,hepatorenal syndrom,liver cirrhosis who was [facility],pt was admitted for worsening renal failure and hyponatremia and was found with low Hgb .pt is [place] resident and mainly bed bound.pt was managed in [facility] for anemia and was given 2 units PRBC and for metabolic acidosis was given bicar with ivf hydration but her renal function continued to worsens and decission was made to start the pt on HD discussed with DR Poole and he recommended sx consult to place HD catheter which can be done tomorrow at the time of my assessment pt denied any complains and was oriented to self only Allergies No Known Allergies Allergy (Verified 08/31/18 16:59) Home medications list reviewed: Yes Home Medications: Furosemide [Lasix] 40 mg PO DAILY 08/31/18 Insulin Glargine Human [Lantus] 30 unit SQ BID 08/31/18 Lactulose 40 gm PO TID 08/31/18 Lovastatin 10 mg PO BEDTIME 08/31/18 Mirtazapine [Remeron] 15 mg PO BEDTIME 08/31/18 Pantoprazole [Protonix Tab] 20 mg PO DAILY 08/31/18 Rifaximin [Xifaxan] 550 mg PO BID 08/31/18 - Past Medical/Surgical History Has patient received pneumonia vaccine in the past: Yes Diabetic: Yes -: DM -: liver cirrhosis -: CKD -: HLD -: hepatorenal failure -: cholecystectomy - Family History Father History Unknown: Yes Mother History Unknown: Yes Review of Systems is unable to be obtained Physical Examination - Physical Exam General: Alert, Oriented x1 HEENT: Atraumatic, Normocephalic, PERRLA Neck: Supple Respiratory: Clear to auscultation bilaterally Cardiovascular: Normal S1 S2, Systolic murmur Gastrointestinal: Normal bowel sounds, Soft and benign, Non-distended Musculoskeletal: No swelling Integumentary: Rash(es) Neurological: Normal speech - Studies labs from the transfer packet 08/30/18 wbc 7.8 ,Hgb 9.6,hct 29 ,plt 110 BUN 85 CR 5.7 Na 129 ch 94 K 4.6 mg 2.6 GFR 7.23 Ucx no growth Assessment and Plan - Plan assessment /plan: worsening CKD ,transferred from [place] for HD initiation metabolic acidosis liver cirrhosis hepato renal failure hyponatremia anemia UTI DM plan: sx consult for catheter placement nephrology consult DR Poole on the case insulin sliding scale and monitor BS lactulose rifaximin spironlactone ceftriaxone for UTI biacarb fluid restriction monitor HGb and transfuse prn f/up repeat labs dvt ppx with scds - Advance Directives Does patient have a Living Will: No Does patient have a Durable POA for Healthcare: No Critical Care: No Time Spent Managing Pts Care (In Minutes): 50
[2018-08-31] MEDS ORDERED: PNEUMOCOCCAL VACCINE 0.5 ML IMVAC ONE (18:00)
[2018-08-31] MEDS ORDERED: CEFAZOLIN/SWI 1gm 1 GM/10 ML SYR IV SCH (18:15)
[2018-08-31] MEDS ORDERED: D50W 25 GM/50 ML SYRINGE IV PRN (18:32)
[2018-08-31] MEDS ORDERED: GLUCAGON 1 MG/VIAL IM PRN (18:32)
[2018-08-31 20:09] LABS: Absolute Lymphocytes (CBC) 0.4 K/uL (0.7-4.9); Basophils % 0.7 % (0-1.3); Eosinophils % 1.1 % (0-4.4); Hematocrit 30.1 % (36.0-45.0); Lymphocytes % 5.7 % (15.3-44.8); MPV 8.8 fL (7.6-11.3); Monocytes % 11.2 % (3.3-12.3); RBC Red Blood Cell Count 3.42 M/uL (3.86-4.86)
[2018-08-31 20:19] LABS: Albumin 3.5 g/dL (3.4-5.0); Bilirubin Total 1.7 mg/dL (0.2-1.0); Potassium 4.4 mmol/L (3.5-5.1); Protein, Total 5.6 g/dL (6.4-8.2)
[2018-08-31] MEDS: LACTULOSE 20 GM/30 ML UCUP PO SCH (23:04)
[2018-08-31] MEDS: INSULIN -REGULAR HUMAN 50 UNIT/0.5 ML ML SQ SCH (23:04)
[2018-08-31] MEDS: Rifaximin 550 MG Tab PO SCH (23:05)
[2018-08-31] MEDS: CEFTRIAXONE/SWI 1gm 1 GM/10 ML SYR IV SCH (23:05)
[2018-08-31] MEDS: SODIUM BICARB 325 MG TAB PO SCH (23:05)
[2018-09-01] MEDS: LACTULOSE 20 GM/30 ML UCUP PO SCH ×4 (01:00→18:50)
[2018-09-01] MEDS ORDERED: CEFTRIAXONE 1 GM/NS 50 ML 1 GM/50 ML BAG IV SCH (09:00)
[2018-09-01] MEDS: SODIUM BICARB 325 MG TAB PO SCH ×2 (10:03→22:04)
[2018-09-01] MEDS: SPIRONOLACTONE 25 MG TABLET PO SCH (10:03)
[2018-09-01] MEDS: Rifaximin 550 MG Tab PO SCH ×2 (10:03→22:05)
[2018-09-01] MEDS: INSULIN -REGULAR HUMAN 50 UNIT/0.5 ML ML SQ SCH ×4 (10:04→22:05)
[2018-09-01 11:04] LABS: Potassium 4.6 mmol/L (3.5-5.1)
--- NOTE | 2018-09-01 11:35 | P.PN ---
Subjective Date of Service: 09/01/18 Chief Complaint: pt was transferred from another hospital for HD pt seen and examined no overnight events plan for HD tomorrow Review of Systems 10-point ROS is otherwise unremarkable Physical Examination - Vital Signs Temperature: 97.9 F Blood Pressure: 124/60 Pulse: 74 Respirations: 16 Pulse Ox (%): 100 - Physical Exam General: Alert, In no apparent distress, Oriented x1 HEENT: Atraumatic, Normocephalic, PERRLA Neck: Supple Respiratory: Clear to auscultation bilaterally, Normal air movement Cardiovascular: Regular rate/rhythm, Normal S1 S2 Gastrointestinal: Normal bowel sounds, Soft and benign, Non-distended Musculoskeletal: No clubbing Integumentary: Rash(es) Neurological: Normal speech - Studies Laboratory Data (last 24 hrs) 09/01/18 10:37: Sodium 133 L, Potassium 4.6, BUN 92 H, Creatinine 6.55 H*, Glucose 222 H 08/31/18 19:41: Sodium 132 L, Potassium 4.4, BUN 88 H, Creatinine 6.78 H*, Glucose 196 H, Total Bilirubin 1.7 H, AST 37, ALT 19, Alkaline Phosphatase 453 H 08/31/18 19:41: WBC 7.3, Hgb 9.9 L, Hct 30.1 L, Plt Count 151 L Assessment And Plan - Plan assessment /plan: worsening CKD ,transferred from [place] for HD initiation metabolic acidosis liver cirrhosis hepato renal failure hyponatremia anemia UTI DM plan: sx consult for catheter placement nephrology consult DR Poole on the case insulin sliding scale and monitor BS lactulose rifaximin spironlactone ceftriaxone for UTI biacarb fluid restriction monitor HGb and transfuse prn f/up repeat labs dvt ppx with scds Discharge Plan: [facility]irement Plan to discharge in: 48 Hours
[2018-09-01 12:59] LABS: Urine Appearance TURBID; Urine Bilirubin NEGATIVE (NEG); Urine Blood 3+ (NEG); Urine Color YELLOW; Urine Glucose NEGATIVE (NEG); Urine Microscopic Reflex ORDER UMIC; Urine Protein 1+ (NEG); Urine Specific Gravity 1.015 (1.005-1.030); Urine Urobilinogen 0.2 mg/dL (0.2-1.0)
[2018-09-01 13:07] LABS: Urine Bacteria >50 /HPF (<20); Urine Culture Reflex Order REFLEXED; Urine Yeast MANY (NONE SEEN); Urine Yeast with Hyphae PRESENT
[2018-09-01 13:20] LABS: Absolute Lymphocytes (CBC) 0.5 K/uL (0.7-4.9); Basophils % 0.6 % (0-1.3); Hematocrit 31.6 % (36.0-45.0); MPV 8.3 fL (7.6-11.3); Monocytes % 9.2 % (3.3-12.3); RBC Red Blood Cell Count 3.56 M/uL (3.86-4.86)
[2018-09-01 13:59] LABS: Potassium 4.6 mmol/L (3.5-5.1)
--- NOTE | 2018-09-01 16:16 | CON ---
Date of Consultation: 09/01/2018 Requesting Provider: Dr. Kwon. Reason For Consultation: Chronic kidney disease with progression to end-stage renal. History Of Present Illness: Ms. 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 She was admitted again to [facility] after having eleva jenaro creatinine in the outpatient setting of 5.4. The patient was treated with discontinuation of all diuretics at 48 hours of albumin. However, despite those measures, the patient remained oligoanuric and determination was made that the patient had progressed to end-stage renal disease and is now req uiring renal placement therapy. Due to lack of resources at [facility], the patient's tunnel dialysis catheter was unable to be placed. The transfer was initiated and the patient was graciousl y accepted here at [facility]. The patient is currently seen at the bedside. The patie nt has no acute complaints at this time. She is accompanied by her daughter. She denies any fevers, chills, chest pain, shortness of breath, nausea, vomiting, or diarrhea. Of note, the patient did have a paracentesis just prior to transfer with 3 L of fluid were removed. Past Medical History: As per HPI. Family History: Noncontributory. Physical Examination: Vital Signs: Blood pressure 124/60, pulse rate 74, temperature 97.9. Input and output 480 in and 32 0 out. General: No acute distress. Chronically ill-appearing. Heart: Regular rate and rhythm. No murmurs, rubs, gallops. Lungs: Grossly clear to auscultation bilaterally. Abdomen: Abdomen is distended, but soft, nontender. Extremities: With a 1+ edema bilaterally. Skin: The patient has ecchymoses generally throughout the body and various stages of healing. Laboratory Data: CBC reviewed. Hemoglobin 9.9, platelet count 151. Serum chemistry; sodium 132, po tassium 4.4, chloride 103, CO2 12, BUN 88, creatinine 6.78, glucose 196, calcium 8.3, bilirubin 1.7, alkaline phosphatase 453. Yesterday's ammonia level was 37 and albumin is 3.5. Impression: 1.Chronic kidney disease from hepatorenal syndrome, which has progressed to end-stage renal disease, necessitating renal replacement therapy. 2.Electrolyte abnormalities consistent with a combination of renal insufficiency as well as cirrhosi s. 3.Metabolic acidosis. 4.Chronic malnutrition. 5.Anemia and thrombocytopenia in the setting of cirrhosis. Plan: The patient will have tunnel dialysis catheter placed tomorrow. This to be placed by Dr. Issa . The patient's first dialysis will be tomorrow, which will be a short treatment and another treatme nt on Sunday. We will undertake the placement of the patient at one of two [facility]. We will need to have updated availability of chair times tomorrow. This must also be followed up by our psychotherapist social worker here in the hospital. We would recommend renally dosing all medications to end-st age renal disease dosing. Continue usual medications for cirrhosis as put in by primary team and we will continue to follow. Contact me anytime with any questions or concerns. HAN Voice ID: [id number] Report ID: [id number]
--- NOTE | 2018-09-01 17:56 | CON ---
Date of Consultation: 08/31/2018 Reason For Consultation: The patient needs dialysis. History Of Present Illness: The patient is a 77-year-old female, who was transferred from [facility] for hemodialysis. She was admitted for worsening renal failure and hyponatremia and was fou nd with a low hemoglobin. She is a detention patient, bed-bound, and was given 2 units of blood, and she was transferred here and Dr. Hoff wants to start dialysis tomorrow. She is awake, alert, co nfused, lying in bed. No sore throat, runny nose, cough, headaches, or dizziness. No chest pain. N o fever or chills. Review of Systems: Otherwise, unremarkable. Past Medical History: Diabetes, cirrhosis, chronic kidney disease now with acute renal failure, hepa torenal syndrome. Past Surgical History: Cholecystectomy. Allergies: NO ALLERGIES. Social History: She does not smoke or drink. Family History: Noncontributory. Physical Examination: Vital Signs: Stable. She is afebrile. General: She is awake, alert, and oriented x3. Head and Neck: Cranial nerves 2 through 12 are grossly within normal limits. No neck masses. No JV D. Throat clear. Neck is supple. Chest: Clear. Heart: S1 and S2. Abdomen: Soft. Extremities: Neurovascularly intact. Neuro: Nonfocal. Diagnostic Data: Reviewed. White count is 8.4, platelets are 140. BUN is 92, creatinine is 6.55, p otassium is 4.6. Assessment: Acute renal failure. Plan: We will proceed with placement of Tesio catheter tomorrow morning. The patient and un derstands the risks, benefits, and alternatives and agrees to procedure. /MODL Voice ID: [id number] Report ID: [id number]
[2018-09-01] MEDS: CEFTRIAXONE/SWI 1gm 1 GM/10 ML SYR IV SCH (22:04)
[2018-09-02] MEDS: LACTULOSE 20 GM/30 ML UCUP PO SCH ×5 (00:38→22:13)
[2018-09-02 06:32] LABS: Absolute Lymphocytes (CBC) 0.7 K/uL (0.7-4.9); Basophils % 0.6 % (0-1.3); Eosinophils % 1.5 % (0-4.4); Hematocrit 33.1 % (36.0-45.0); Lymphocytes % 7.6 % (15.3-44.8); MPV 9.4 fL (7.6-11.3); RBC Red Blood Cell Count 3.73 M/uL (3.86-4.86)
[2018-09-02 06:37] LABS: Protime INR 1.31
[2018-09-02 06:55] LABS: Potassium 4.4 mmol/L (3.5-5.1)
[2018-09-02] MEDS: INSULIN -REGULAR HUMAN 50 UNIT/0.5 ML ML SQ SCH ×4 (07:30→22:13)
[2018-09-02] MEDS ORDERED: CEFAZOLIN/NS 1gm 1 GM/50 ML BAG IVPB SCH (08:00)
[2018-09-02] MEDS ORDERED: NS 0.9% VIAL 0 ML ONE (08:22)
[2018-09-02] MEDS ORDERED: HEPARIN 5000 UNIT/ML 1 ML VIAL ONE (08:22)
[2018-09-02] MEDS ORDERED: NA CHLORIDE 0.9% 100 ML IV ONE (08:23)
[2018-09-02] MEDS ORDERED: LIDOCAINE 1% MPF 30 ML VIAL ONE (08:23)
[2018-09-02] MEDS ORDERED: NS 0.9% VIAL 10 ML ONE (08:39)
[2018-09-02] MEDS ORDERED: MIDAZOLAM HCL 2 MG/2 ML INJ ONE (08:53)
[2018-09-02] MEDS ORDERED: FENTANYL CITR 100 MCG/2 ML ONE (08:53)
[2018-09-02] MEDS ORDERED: PROPOFOL 200 MG/20 ML VIAL IV ONE ×2 (08:53→09:49)
[2018-09-02] MEDS ORDERED: ONDANSETRON 4 MG/2 ML VIAL ONE (08:54)
[2018-09-02] MEDS ORDERED: LIDOCAINE 2% MPF 5 ML VIAL ONE (08:54)
[2018-09-02] MEDS: Rifaximin 550 MG Tab PO SCH ×2 (09:00→22:09)
[2018-09-02] MEDS: SODIUM BICARB 325 MG TAB PO SCH ×2 (09:00→22:09)
[2018-09-02] MEDS: SPIRONOLACTONE 25 MG TABLET PO SCH (09:00)
[2018-09-02] MEDS ORDERED: NA CHLORIDE 0.9% 500 ML ONE (09:06)
[2018-09-02] MEDS ORDERED: CEFAZOLIN/SWI 1gm 1 GM/10 ML SYR ONE (09:13)
[2018-09-02] MEDS ORDERED: MANNITOL 25% 12.5 GM/50 ML VIAL IV PRN (09:59)
[2018-09-02] MEDS ORDERED: NA CHLORIDE 0.9% 1,000 ML IV PRN (09:59)
[2018-09-02] MEDS ORDERED: ALBUMIN HUMAN 25% 50 ML IV SCH (10:00)
--- NOTE | 2018-09-02 10:02 | P.OP ---
Preoperative diagnosis: ARF Postoperative diagnosis: same Primary procedure: YOLY Walker, Fluoroscopy Anesthesia: MAC Estimated blood loss: min Specimen: none Findings: nl anatomy Complications: None Transferred to: Recovery Room Condition: Good
--- NOTE | 2018-09-02 10:45 | RAD REPORT ---
EXAM DESCRIPTION: RAD - Fluoroscopy <1 Hour - 09/02/2018 10:06 am CLINICAL HISTORY: Device placement central venous catheter placement FINDINGS: A central venous catheter was placed into the superior vena cava/ right atrium. Three fluo roscopic spot images are submitted. The examination was performed by Dr. Issa Fluoroscopy time 0
--- NOTE | 2018-09-02 11:07 | RAD REPORT ---
EXAM DESCRIPTION: RAD - Chest Single View - 09/02/2018 11:02 am CLINICAL HISTORY: s/p Tesio Chest pain. COMPARISON: No comparisons FINDINGS: Portable technique limits examination quality. Right-sided venous catheter is in place with tip in the SVC. The heart is normal in size. No pneumoth orax. IMPRESSION: No postprocedure pneumothorax.
--- NOTE | 2018-09-02 13:58 | OP ---
Date of Procedure: 09/02/2018 Surgeon: Willam Issa MD Preoperative Diagnosis: Acute renal failure. Postoperative Diagnosis: Acute renal failure. Procedure: Placement of right internal jugular Tesio catheter. Interpretation of intraoperative flu oroscopy. Estimated Blood Loss: Minimal. Specimen: None. Findings: Normal anatomy. Anesthesia: MAC. Complications: None. Disposition: The patient tolerated the procedure in stable condition, taken to the Recovery in good general condition. Procedure In Detail: The patient was brought to the OR and placed in supine position. MAC anesthesi a was begun. The patient placed in the supine position, prepped and draped in usual sterile fashion. Then lidocaine 1% infiltrated locally. An 18-gauge needle was used to access the right IJ vein. G uidewire was passed. Position was confirmed with fluoroscopy. Counterincision made. Tunneling radha ce was used to tunnel the catheter between the 2 wounds. Seldinger technique was used. Vein dilated . Tip of the catheter placed in the SVC under fluoroscopy. Catheter flushed with heparin and packed with heparin with good blood flow. Skin wound was closed with 3-0 chromic and 3-0 nylon used to sec ure the tube to the chest wall. Sterile dressing was applied. The patient was awakened and taken to Recovery in good general condition. [facility] x-ray has been ordered. /MODL Voice ID: [id number] Report ID: [id number]
--- NOTE | 2018-09-02 14:33 | P.DS ---
Admission Date: 08/31/18 Discharge Date: 09/02/18 Reason for Admission: pt was transferred from another hospital for HD Consultations: GI - Problems (1) Urinary tract infection Current Visit: Yes Status: Acute Qualifiers: Urinary tract infection type: acute cystitis Hematuria presence: without hematuria Qualified Code(s): N30.00 - Acute cystitis without hematuria (2) Acute kidney injury Current Visit: Yes Status: Acute (3) Acute diverticulitis Current Visit: Yes Status: Acute (4) Acute encephalopathy Current Visit: Yes Status: Acute Brief History of Present Illness: 77 y/o woman with PMhx of DM,CKD,hepatorenal syndrom,liver cirrhosis who was transferred from [facility] for HD,pt was admitted for worsening renal failure and hyponatremia and was found with low Hgb .pt is [place] resident and mainly bed bound.pt was managed in [facility] for anemia and was given 2 units PRBC and for metabolic acidosis was given bicarb with ivf hydration but her renal function continued to worsens and decission was made to start the pt on HD discussed with DR Poole and he recommended sx consult to place HD catheter which can be done tomorrow at the time of my assessment pt denied any complains and was oriented to self only Hospital Course: Overall during the hospital stay patient remained stable Patient was initially admitted to the hospital for acute renal failure, hyponatremia, acute diverticulitis and urinary tract infection. For patient's symptomatic hyponatremia was started on IV fluids here in the hospital. Patient's hyponatremia did resolve here in the hospital with fluids. Patient was alert and oriented x3. Initially patient was having acute metabolic encephalopathy however which resolved after hyponatremia was corrected. For patient's acute renal failure again patient was on IV fluids which did improve her creatinine here in the hospital. Most likely secondary to dehydration secondary to her acute diverticulitis. For patient's acute diverticulitis patient was started on IV ciprofloxacin and Flagyl. Was kept NPO. When patient had some improvement in her diarrhea and abdominal pain patient diet was advanced to full liquid diet. Patient was able to tolerate the full liquid diet well and thus was advanced to a bland diet. At that time patient was able to tolerate her bland diet thus her medication was switched over to oral supplement Flagyl. Patient did not have any further diarrheal episode and no further abdominal pain was noted. Patient denies having any fever chills nausea vomiting at that time as well. Patient thus was discharged home under stable condition was given a prescription for p.o. ciprofloxacin and Flagyl Patient while here in the hospital also was found to have urinary tract infection which was positive for E. coli and was sensitive to oral ciprofloxacin. Patient was asked to follow up with primary care provider in about 1-2 days post discharge and was thus discharged home under stable condition. Patient will follow up colonoscopy in about 6 weeks which she was educated about as well. Vital Signs/Physical Exam: Temp Pulse Resp BP Pulse Ox 97.8 F 76 13 144/48 H 100 09/02/18 12:00 09/02/18 12:00 09/02/18 12:00 09/02/18 12:00 09/02/18 12:00 Laboratory Data at Discharge: WBC 8.6 K/uL (4.3-10.9) 09/02/18 06:22 Hgb 10.8 g/dL (12.0-15.0) L 09/02/18 06:22 Hct 33.1 % (36.0-45.0) L 09/02/18 06:22 Plt Count 173 K/uL (152-406) D 09/02/18 06:22 PT 15.3 SECONDS (9.5-12.5) H 09/02/18 06:22 INR 1.31 09/02/18 06:22 Sodium 134 mmol/L (136-145) L 09/02/18 06:22 Potassium 4.4 mmol/L (3.5-5.1) 09/02/18 06:22 BUN 94 mg/dL (7-18) H 09/02/18 06:22 Creatinine 6.74 mg/dL (0.55-1.3) H* 09/02/18 06:22 Glucose 201 mg/dL (74-106) H 09/02/18 06:22 Total Bilirubin 1.7 mg/dL (0.2-1.0) H 08/31/18 19:41 AST 37 U/L (15-37) 08/31/18 19:41 ALT 19 U/L (12-78) 08/31/18 19:41 Alkaline Phosphatase 453 U/L (45-117) H 08/31/18 19:41 Home Medications: Furosemide [Lasix] 40 mg PO DAILY 08/31/18 Insulin Glargine Human [Lantus] 30 unit SQ BID 08/31/18 Lactulose 40 gm PO TID 08/31/18 Lovastatin 10 mg PO BEDTIME 08/31/18 Mirtazapine [Remeron] 15 mg PO BEDTIME 08/31/18 Pantoprazole [Protonix Tab] 20 mg PO DAILY 08/31/18 Rifaximin [Xifaxan] 550 mg PO BID 08/31/18
--- NOTE | 2018-09-02 14:42 | P.PN ---
Subjective Date of Service: 09/02/18 Chief Complaint: pt was transferred from another hospital for HD Patient seen and examined at bedside with RN. Chart reviewed. Case discussed with general surgery and nephrology at this time. Currently patient is awaiting a HD catheter placement this morning. Review of Systems 10-point ROS is otherwise unremarkable Physical Examination - Vital Signs Temperature: 97.8 F Blood Pressure: 144/48 Pulse: 76 Respirations: 13 Pulse Ox (%): 100 - Physical Exam General: Alert, In no apparent distress HEENT: Atraumatic, PERRLA, EOMI Neck: Supple, JVD not distended Respiratory: Clear to auscultation bilaterally, Normal air movement Cardiovascular: Regular rate/rhythm, Normal S1 S2 Gastrointestinal: Normal bowel sounds, No tenderness Musculoskeletal: No tenderness Integumentary: No rashes Neurological: Normal speech, Normal tone, Normal affect Lymphatics: No axilla or inguinal lymphadenopathy - Studies Laboratory Data (last 24 hrs) 09/02/18 06:22: PT 15.3 H, INR 1.31 09/02/18 06:22: Sodium 134 L, Potassium 4.4, BUN 94 H, Creatinine 6.74 H*, Glucose 201 H 09/02/18 06:22: WBC 8.6, Hgb 10.8 L, Hct 33.1 L, Plt Count 173 D Medications List Reviewed: Yes Assessment And Plan - Current Problems (Diagnosis) (1) End stage renal disease Current Visit: Yes Status: Acute Plan: Patient now with end-stage renal disease requiring hemodialysis. -BUN and creatinine elevated today with metabolic acidosis -general surgery consulted. Appreciated recommendations at this time -schedule for HD tunnel catheter placement -nephrology consulted. Appreciated recommendations at this time -will start hemodialysis was the catheters placed -hepatitis and other panels done -case management consulted to set up outpatient chair time (2) Type 2 diabetes mellitus Current Visit: Yes Status: Chronic Qualifiers: Diabetes mellitus talent sourcer insulin use: without talent sourcer use Diabetes mellitus complication status: with kidney complications Diabetes mellitus complication detail: with chronic kidney disease Chronic kidney disease stage : stage 5, not on chronic dialysis Qualified Code(s): E11.22 - Type 2 diabetes mellitus with diabetic chronic kidney disease; N18.5 - Chronic kidney disease, stage 5 (3) Hypertension Current Visit: Yes Status: Chronic Qualifiers: Hypertension type: essential hypertension Qualified Code(s): I10 - Essential (primary) hypertension (4) Liver cirrhosis Current Visit: Yes Status: Chronic Qualifiers: Hepatic cirrhosis type: unspecified hepatic cirrhosis Ascites presence: without ascites Qualified Code(s): K74.60 - Unspecified cirrhosis of liver - Plan Pending clinical improvement at this time. Awaiting for HD catheter placement at this time. Will followup post procedure Discharge Plan: Home Plan to discharge in: Greater than 2 days - Code Status/Comfort Care Code Status Assessed: Yes Critical Care: No
[2018-09-02] MEDS: CEFTRIAXONE/SWI 1gm 1 GM/10 ML SYR IV SCH (22:09)
--- NOTE | 2018-09-02 22:20 | P.PN ---
Date of Service: 09/02/18 Vital Signs Temp Pulse Resp BP Pulse Ox 98.1 F 84 15 135/60 99 09/02/18 20:00 09/02/18 20:00 09/02/18 20:00 09/02/18 20:00 09/02/18 20:00 Medications Dextrose (Dextrose 50% Syringe) 12.5 gm IV PRN PRN; Protocol PRN Reason: HYPOGLYCEMIA Stop: 09/30/18 18:33 Glucagon (Glucagen) 1 mg IM 1X PRN; Protocol PRN Reason: HYPOGLYCEMIA Stop: 09/30/18 18:33 Heparin Sodium (Porcine) (Heparin 1,000 Units/Ml) 4,000 unit IV EVERY HD NICK Stop: 09/04/18 15:01 Last Admin: 09/02/18 14:43 Dose: 4,000 unit Cefazolin Sodium (Ancef 1 Gm/10 Ml Swi Ivp) 1 gm in 10 mls @ 600 mls/hr IV OC NICK Stop: 09/30/18 18:16 Ceftriaxone Sodium/Sodium Chloride (Rocephin 1 Gm/10 Ml Swi Ivp) 1 gm in 10 mls @ 600 mls/hr IV 2100 NICK Stop: 09/30/18 21:01 Last Admin: 09/01/18 22:04 Dose: 10 mls Albumin Human (Albumin 25%) 50 mls @ 100 mls/hr IV EVERY HD NICK Stop: 10/02/18 10:01 Sodium Chloride (Ns 1000 Ml Ivbag) 1,000 mls @ 0 mls/hr IV .Q0M PRN PRN Reason: Priming and BP support at HD Stop: 09/02/18 23:59 Insulin Human Regular (Novolin -R) 0 unit SQ ACHS NICK; Protocol Stop: 09/30/18 21:01 Last Admin: 09/02/18 16:30 Dose: Not Given Lactulose (Cephulac) 20 gm PO Q6H NICK Stop: 09/30/18 19:01 Last Admin: 09/02/18 16:30 Dose: 20 gm Mannitol (Mannitol 12.5 Gm/50 Ml Vial) 12.5 gm IV EVERY HD PRN PRN Reason: Titrate to SBP (MUST DEFINE) Stop: 10/02/18 10:00 Rifaximin (Xifaxan) 550 mg PO BID NICK; Protocol Stop: 09/30/18 21:01 Last Admin: 09/02/18 09:00 Dose: Not Given Sodium Bicarbonate (Sodium Bicarb 325 Mg) 650 mg PO BID [facility] Stop: 09/30/18 21:01 Last Admin: 09/02/18 09:00 Dose: Not Given Spironolactone (Aldactone) 25 mg PO DAILY [facility] Stop: 10/01/18 09:01 Last Admin: 09/02/18 09:00 Dose: Not Given Lab Results (last 24 hrs) 09/02/18 22:08: POC Glucose 280 H 09/02/18 16:32: POC Glucose 189 H 09/02/18 11:56: POC Glucose 222 H 09/02/18 10:02: Hep Bs Antigen Cancelled, Hep Bs Ag Confirmation Cancelled, Hep Bs Antibody Cancelled, Hep Bs Antibody, Quant Cancelled, Hep B Core Total Ab Cancelled 09/02/18 09:05: POC Glucose 207 H 09/02/18 07:10: POC Glucose 215 H 09/02/18 06:22: PT 15.3 H, INR 1.31 09/02/18 06:22: Sodium 134 L, Potassium 4.4, Chloride 103, Carbon Dioxide 14 L* , BUN 94 H, Creatinine 6.74 H*, Estimated GFR 6 L, Glucose 201 H, Calcium 9.0 09/02/18 06:22: WBC 8.6, RBC 3.73 L, Hgb 10.8 L, Hct 33.1 L, MCV 88.6, MCH 29.1 , MCHC 32.8, RDW 18.7 H, Plt Count 173 D, MPV 9.4 D, Neutrophils % 77.3 H, Lymphocytes % 7.6 L, Monocytes % 13.0 H, Eosinophils % 1.5, Basophils % 0.6, Absolute Neutrophils 6.7, Absolute Lymphocytes 0.7, Absolute Monocytes 1.1, Absolute Eosinophils 0.1, Absolute Basophils 0.1 Microbiology Results 09/01/18 12:30 Catheterized Urine [place] Count - Preliminary >100,000 CFU/ML. 09/01/18 12:30 Catheterized Urine - Preliminary Assessment/ Plan: Nephrology. CPS stable without CP or SOB. No acute events. Already had CVC placed. Vitals, medications, blood work and imaging reviewed in the chart. NAD. MMM. Neck supple. CTA. RRR. Soft Abd +BS Distended. No C/C. LE Edema 1+. Scattered ecchymoses. Na 134; K 4.4 A/ ESRD on HD. Hyponatremia. Acidosis. DM II with CKD. Anemia in CKD. Acute cystitis. P/ Continue current POC and Medications. Acute HD today. Next HD tomorrow. Titrate insulin to improve BG control. No NSAIDs. AM labs. Daily weight. Plan for placement at the [facility].
[2018-09-03] MEDS: LACTULOSE 20 GM/30 ML UCUP PO SCH ×4 (01:21→18:59)
[2018-09-03 05:39] LABS: Absolute Lymphocytes (CBC) 0.6 K/uL (0.7-4.9); Eosinophils % 1.6 % (0-4.4); Hematocrit 27.2 % (36.0-45.0); Lymphocytes % 8.6 % (15.3-44.8); MPV 8.4 fL (7.6-11.3); Monocytes % 13.7 % (3.3-12.3); RBC Red Blood Cell Count 3.12 M/uL (3.86-4.86)
[2018-09-03 05:55] LABS: Potassium 3.9 mmol/L (3.5-5.1)
[2018-09-03] MEDS: INSULIN -REGULAR HUMAN 50 UNIT/0.5 ML ML SQ SCH ×4 (09:48→22:21)
[2018-09-03] MEDS: SPIRONOLACTONE 25 MG TABLET PO SCH (09:49)
[2018-09-03] MEDS: SODIUM BICARB 325 MG TAB PO SCH ×2 (09:49→22:21)
--- NOTE | 2018-09-03 10:32 | P.PN ---
Subjective Date of Service: 09/03/18 Chief Complaint: pt was transferred from another hospital for HD Patient seen and examined at bedside with RN. Chart reviewed. Case discussed with general surgery and nephrology at this time. Status post HD catheter placement and has already started on hemodialysis here in hospital. No complaints to offer overnight. Review of Systems 10-point ROS is otherwise unremarkable Physical Examination - Vital Signs Temperature: 97.4 F Blood Pressure: 145/65 Pulse: 77 Respirations: 18 Pulse Ox (%): 100 - Physical Exam General: Alert, In no apparent distress, Cachectic Neck: Other (Bruising noticed where the HD catheter is placed) Respiratory: Clear to auscultation bilaterally, Normal air movement Cardiovascular: Regular rate/rhythm, Normal S1 S2 Gastrointestinal: Normal bowel sounds, No tenderness Musculoskeletal: No tenderness Integumentary: No rashes Neurological: Normal speech, Normal tone, Normal affect, Abnormal strength Lymphatics: No axilla or inguinal lymphadenopathy - Studies Laboratory Data (last 24 hrs) 09/03/18 05:21: Sodium 135 L, Potassium 3.9, BUN 61 H D, Creatinine 4.84 H D, Glucose 194 H 09/03/18 05:21: WBC 7.1 D, Hgb 9.0 L, Hct 27.2 L D, Plt Count 152 Microbiology Data (last 24 hrs): 09/01/18 12:30 Catheterized Urine [place] Count - Final >100,000 CFU/ML. 09/01/18 12:30 Catheterized Urine - Final Medications List Reviewed: Yes Assessment And Plan - Current Problems (Diagnosis) (1) End stage renal disease Current Visit: Yes Status: Acute Plan: Patient now with end-stage renal disease requiring hemodialysis. -status post hemodialysis catheter placement POD 1 -started on hemodialysis had her 1st session yesterday and will be getting another today -general surgery consulted. Appreciated recommendations at this time -nephrology consulted. Appreciated recommendations at this time -case management consulted to set up outpatient chair time -BUN and creatinine improving after starting hemodialysis (2) Type 2 diabetes mellitus Current Visit: Yes Status: Chronic Plan: Insulin sliding scale and Accu-Cheks Qualifiers: Diabetes mellitus terminal press operator insulin use: without long-term use Diabetes mellitus complication status: with kidney complications Diabetes mellitus complication detail: with chronic kidney disease Chronic kidney disease stage : stage 5, not on chronic dialysis Qualified Code(s): E11.22 - Type 2 diabetes mellitus with diabetic chronic kidney disease; N18.5 - Chronic kidney disease, stage 5 (3) Hypertension Current Visit: Yes Status: Chronic Plan: Restarted on home medication. Had to be readjusted due to initiation of hemodialysis. Home blood pressure has been stable here in the hospital Qualifiers: Hypertension type: essential hypertension Qualified Code(s): I10 - Essential (primary) hypertension (4) Liver cirrhosis Current Visit: Yes Status: Chronic Plan: Patient with elevated meld score with poor prognosis less than 6 months. -would try to do ultrasound of the abdomen if needed for increasing pain or swelling in the abdomen area Qualifiers: Hepatic cirrhosis type: unspecified hepatic cirrhosis Ascites presence: without ascites Qualified Code(s): K74.60 - Unspecified cirrhosis of liver - Plan Pending clinical improvement at this time. Status post HD catheter placement and now has been initiated on hemodialysis. Working with physical therapy and occupational therapy today. Will wait for chair time placement. Discharge Plan: Home Plan to discharge in: Greater than 2 days - Code Status/Comfort Care Code Status Assessed: Yes Critical Care: No
[2018-09-03] MEDS ORDERED: ACETAMINOPHEN 500 MG TAB PO PRN (16:04)
--- NOTE | 2018-09-03 21:57 | P.PN ---
Date of Service: 09/03/18 Vital Signs Temp Pulse Resp BP Pulse Ox 98.0 F 77 16 137/60 97 09/03/18 20:00 09/03/18 20:00 09/03/18 20:00 09/03/18 20:00 09/03/18 20:00 Medications Acetaminophen (Tylenol -Extra Strength) 500 mg PO Q4H PRN PRN Reason: Pain scale 2-4 (Mild) Stop: 10/03/18 16:05 Last Admin: 09/03/18 18:58 Dose: 500 mg Dextrose (Dextrose 50% Syringe) 12.5 gm IV PRN PRN; Protocol PRN Reason: HYPOGLYCEMIA Stop: 09/30/18 18:33 Glucagon (Glucagen) 1 mg IM 1X PRN; Protocol PRN Reason: HYPOGLYCEMIA Stop: 09/30/18 18:33 Heparin Sodium (Porcine) (Heparin 1,000 Units/Ml) 4,000 unit IV EVERY HD NICK Stop: 09/04/18 15:01 Last Admin: 09/02/18 14:43 Dose: 4,000 unit Cefazolin Sodium (Ancef 1 Gm/10 Ml Swi Ivp) 1 gm in 10 mls @ 600 mls/hr IV OC NICK Stop: 09/30/18 18:16 Ceftriaxone Sodium/Sodium Chloride (Rocephin 1 Gm/10 Ml Swi Ivp) 1 gm in 10 mls @ 600 mls/hr IV 2100 NICK Stop: 09/30/18 21:01 Last Admin: 09/02/18 22:09 Dose: 10 mls Albumin Human (Albumin 25%) 50 mls @ 100 mls/hr IV EVERY HD NICK Stop: 10/02/18 10:01 Insulin Human Regular (Novolin -R) 0 unit SQ ACHS NICK; Protocol Stop: 09/30/18 21:01 Last Admin: 09/03/18 16:30 Dose: Not Given Lactulose (Cephulac) 20 gm PO Q6H NICK Stop: 09/30/18 19:01 Last Admin: 09/03/18 18:59 Dose: 20 gm Mannitol (Mannitol 12.5 Gm/50 Ml Vial) 12.5 gm IV EVERY HD PRN PRN Reason: Titrate to SBP (MUST DEFINE) Stop: 10/02/18 10:00 Rifaximin (Xifaxan) 550 mg PO BID NICK; Protocol Stop: 09/30/18 21:01 Last Admin: 09/02/18 22:09 Dose: 550 mg Sodium Bicarbonate (Sodium Bicarb 325 Mg) 650 mg PO BID NICK Stop: 09/30/18 21:01 Last Admin: 09/03/18 09:49 Dose: 650 mg Spironolactone (Aldactone) 25 mg PO DAILY NICK Stop: 10/01/18 09:01 Last Admin: 09/03/18 09:49 Dose: 25 mg Lab Results (last 24 hrs) 09/03/18 16:02: POC Glucose 189 H 09/03/18 09:43: POC Glucose 280 H 09/03/18 05:21: Sodium 135 L, Potassium 3.9, Chloride 102, Carbon Dioxide 20 L, BUN 61 H D, Creatinine 4.84 H D, Estimated GFR 9 L, Glucose 194 H, Calcium 9.0 09/03/18 05:21: WBC 7.1 D, RBC 3.12 L, Hgb 9.0 L, Hct 27.2 L D, MCV 87.3, MCH 28.8, MCHC 33.0, RDW 18.5 H, Plt Count 152, MPV 8.4 D, Neutrophils % 75.1 H, Lymphocytes % 8.6 L, Monocytes % 13.7 H, Eosinophils % 1.6, Basophils % 1.0, Absolute Neutrophils 5.4, Absolute Lymphocytes 0.6 L, Absolute Monocytes 1.0, Absolute Eosinophils 0.1, Absolute Basophils 0.1 09/02/18 22:08: POC Glucose 280 H Microbiology Results 09/01/18 12:30 Catheterized Urine [place] Count - Final >100,000 CFU/ML. 09/01/18 12:30 Catheterized Urine - Final Assessment/ Plan: Nephrology. CPS stable without CP or SOB. No acute events. Reports malaise today of unclear etiology. Vitals, medications, blood work and imaging reviewed in the chart. NAD. MMM. Neck supple. CTA. RRR. Soft Abd +BS Distended. No C/C. LE Edema 1+. Scattered ecchymoses. Na 134; K 4.4 A/ ESRD on HD. Hyponatremia. Acidosis. DM II with CKD. Anemia in CKD. Acute cystitis. P/ Continue current POC and Medications. Acute HD today. Next HD tomorrow. Titrate insulin to improve BG control. Agree with abx. Follow up cultures. No NSAIDs. AM labs. Daily weight. Plan for placement at the [facility]. [place] HBV panel pending. May have a recent hepatitis panel at [facility].
[2018-09-03] MEDS: CEFTRIAXONE/SWI 1gm 1 GM/10 ML SYR IV SCH (22:22)
[2018-09-04] MEDS: LACTULOSE 20 GM/30 ML UCUP PO SCH ×4 (00:15→20:59)
[2018-09-04 03:16] LABS: HBsAG Nonreactive (Nonreactive)
[2018-09-04] MEDS: INSULIN -REGULAR HUMAN 50 UNIT/0.5 ML ML SQ SCH ×4 (09:19→20:59)
[2018-09-04] MEDS: SODIUM BICARB 325 MG TAB PO SCH (09:20)
[2018-09-04] MEDS: SPIRONOLACTONE 25 MG TABLET PO SCH (09:20)
--- NOTE | 2018-09-04 10:38 | P.PN ---
Subjective Date of Service: 09/04/18 Chief Complaint: pt was transferred from another hospital for HD Patient seen and examined at bedside with RN. Chart reviewed. Case discussed with general surgery and nephrology at this time. Status post HD catheter placement and has already started on hemodialysis here in hospital. No complaints to offer overnight. Review of Systems 10-point ROS is otherwise unremarkable Physical Examination - Vital Signs Temperature: 97.5 F Blood Pressure: 153/65 Pulse: 73 Respirations: 18 Pulse Ox (%): 99 - Physical Exam General: Alert, In no apparent distress HEENT: Atraumatic, PERRLA, EOMI Neck: Supple, JVD not distended Respiratory: Clear to auscultation bilaterally, Normal air movement Cardiovascular: Regular rate/rhythm, Normal S1 S2 Gastrointestinal: Normal bowel sounds, No tenderness Musculoskeletal: No tenderness Integumentary: No rashes Neurological: Normal speech, Normal tone, Normal affect Lymphatics: No axilla or inguinal lymphadenopathy - Studies Microbiology Data (last 24 hrs): 09/01/18 12:30 Catheterized Urine [place] Count - Final >100,000 CFU/ML. 09/01/18 12:30 Catheterized Urine - Final Medications List Reviewed: Yes Assessment And Plan - Current Problems (Diagnosis) (1) End stage renal disease Current Visit: Yes Status: Acute Plan: Patient now with end-stage renal disease requiring hemodialysis. -status post hemodialysis catheter placement POD 2 -started on hemodialysis -general surgery consulted. Appreciated recommendations at this time -nephrology consulted. Appreciated recommendations at this time -case management consulted to set up outpatient chair time -BUN and creatinine improving after starting hemodialysis (2) Type 2 diabetes mellitus Current Visit: Yes Status: Chronic Plan: Insulin sliding scale and Accu-Cheks Qualifiers: Diabetes mellitus nursing home insulin use: without nursing home use Diabetes mellitus complication status: with kidney complications Diabetes mellitus complication detail: with chronic kidney disease Chronic kidney disease stage : stage 5, not on chronic dialysis Qualified Code(s): E11.22 - Type 2 diabetes mellitus with diabetic chronic kidney disease; N18.5 - Chronic kidney disease, stage 5 (3) Hypertension Current Visit: Yes Status: Chronic Plan: Restarted on home medication. Had to be readjusted due to initiation of hemodialysis. Home blood pressure has been stable here in the hospital Qualifiers: Hypertension type: essential hypertension Qualified Code(s): I10 - Essential (primary) hypertension (4) Liver cirrhosis Current Visit: Yes Status: Chronic Plan: Patient with elevated meld score with poor prognosis Qualifiers: Hepatic cirrhosis type: unspecified hepatic cirrhosis Ascites presence: without ascites Qualified Code(s): K74.60 - Unspecified cirrhosis of liver - Plan Pending clinical improvement at this time. Status post HD catheter placement and now has been initiated on hemodialysis. Working with physical therapy and occupational therapy today. Will wait for chair time placement. Discharge Plan: Home Plan to discharge in: Greater than 2 days - Code Status/Comfort Care Code Status Assessed: Yes Critical Care: No
[2018-09-04 11:25] LABS: Albumin 2.9 g/dL (3.4-5.0); Bilirubin Total 1.9 mg/dL (0.2-1.0); Potassium 3.7 mmol/L (3.5-5.1); Protein, Total 5.4 g/dL (6.4-8.2)
[2018-09-04 11:51] LABS: Absolute Lymphocytes (CBC) 0.6 K/uL (0.7-4.9); Basophils % 1.3 % (0-1.3); Eosinophils % 1.1 % (0-4.4); Hematocrit 27.9 % (36.0-45.0); Lymphocytes % 8.7 % (15.3-44.8); MPV 9.5 fL (7.6-11.3); Monocytes % 13.3 % (3.3-12.3); RBC Red Blood Cell Count 3.16 M/uL (3.86-4.86)
[2018-09-04 12:39] LABS: Platelet Estimate ADEQ
[2018-09-04 12:40] LABS: Blood Morphology Comment NOT SEEN (NOT SEEN)
[2018-09-04] MEDS ORDERED: ATORVASTATIN 10 MG TAB PO SCH (21:00)
[2018-09-04] MEDS ORDERED: MIRTAZAPINE 15 MG TAB PO SCH (21:00)
--- NOTE | 2018-09-04 22:31 | P.PN ---
Date of Service: 09/04/18 Vital Signs Temp Pulse Resp BP Pulse Ox 98.5 F 82 16 144/88 H 95 09/04/18 20:00 09/04/18 20:00 09/04/18 20:00 09/04/18 20:00 09/04/18 20:00 Medications Atorvastatin Calcium (Lipitor) 10 mg PO BEDTIME NICK Stop: 10/04/18 21:01 Last Admin: 09/04/18 20:59 Dose: 10 mg Calcitriol (Rocaltrol) 0.5 mcg PO DAILY NICK Stop: 10/05/18 09:01 Cholecalciferol (Vitamin D 5,000 Iu Cap) 5,000 unit PO DAILY NICK Stop: 10/05/18 09:01 Dextrose (Dextrose 50% Syringe) 12.5 gm IV PRN PRN; Protocol PRN Reason: HYPOGLYCEMIA Stop: 09/30/18 18:33 Glucagon (Glucagen) 1 mg IM 1X PRN; Protocol PRN Reason: HYPOGLYCEMIA Stop: 09/30/18 18:33 Albumin Human (Albumin 25%) 50 mls @ 100 mls/hr IV EVERY HD NICK Stop: 10/02/18 10:01 Insulin Human Regular (Novolin -R) 0 unit SQ ACHS NICK; Protocol Stop: 09/30/18 21:01 Last Admin: 09/04/18 20:59 Dose: 4 unit Lactulose (Cephulac) 40 gm PO TID NICK Stop: 10/04/18 14:01 Last Admin: 09/04/18 20:59 Dose: 40 gm Mannitol (Mannitol 12.5 Gm/50 Ml Vial) 12.5 gm IV EVERY HD PRN PRN Reason: Titrate to SBP (MUST DEFINE) Stop: 10/02/18 10:00 Mirtazapine (Remeron) 15 mg PO BEDTIME NICK Stop: 10/04/18 21:01 Last Admin: 09/04/18 20:59 Dose: 15 mg Pantoprazole Sodium (Protonix Tab) 40 mg PO DAILY [facility]; Protocol Stop: 10/05/18 09:01 Sevelamer Carbonate (Renvela) 800 mg PO TIDWM NICK Stop: 10/05/18 08:01 Spironolactone (Aldactone) 25 mg PO DAILY NICK Stop: 10/01/18 09:01 Last Admin: 09/04/18 09:20 Dose: 25 mg Lab Results (last 24 hrs) 09/04/18 20:03: POC Glucose 255 H 09/04/18 18:02: POC Glucose 144 H 09/04/18 11:28: POC Glucose 276 H 09/04/18 10:57: Sodium 138, Potassium 3.7, Chloride 104, Carbon Dioxide 22, BUN 42 H, Creatinine 3.93 H, Estimated GFR 11 L, Glucose 254 H, Calcium 8.2 L, Total Bilirubin 1.9 H, AST 61 H, ALT 22, Alkaline Phosphatase 511 H, Serum Total Protein 5.4 L, Albumin 2.9 L, Globulin 2.5, Albumin/Globulin Ratio 1.2 09/04/18 10:57: WBC 7.2, RBC 3.16 L, Hgb 8.9 L, Hct 27.9 L, MCV 88.3, MCH 28.1, MCHC 31.8 L, RDW 18.8 H, Plt Count 143 L, MPV 9.5 D, Neutrophils % 75.6 H, Lymphocytes % 8.7 L, Monocytes % 13.3 H, Eosinophils % 1.1, Basophils % 1.3, Absolute Neutrophils 5.5, Segmented Neutrophils 82 H, Absolute Lymphocytes 0.6 L , Lymphocytes 8 L, Monocytes 8, Absolute Monocytes 1.0, Absolute Eosinophils 0.1 , Basophils 2 H, Absolute Basophils 0.1, Morphology Comment Not seen 09/04/18 07:27: POC Glucose 209 H 09/03/18 20:11: POC Glucose 276 H 09/03/18 11:25: POC Glucose 301 H 09/02/18 12:45: Hep Bs Antigen Nonreactive, Hep B Core Total Ab Nonreactive 09/02/18 10:27: Hep Bs Antibody Nonreactive, Hep Bs Antibody, Quant <5 L, Hep B Core IgM Ab Nonreactive Microbiology Results 09/01/18 12:30 Catheterized Urine [place] Count - Final >100,000 CFU/ML. 09/01/18 12:30 Catheterized Urine - Final Assessment/ Plan: Nephrology. CPS stable without CP or SOB. No acute events. Feeling better and stronger today. Vitals, medications, blood work and imaging reviewed in the chart. NAD. MMM. Neck supple. CTA. RRR. Soft Abd +BS Distended. No C/C. LE Edema 1+. Scattered ecchymoses. Na 134; K 4.4 A/ ESRD on HD. Hyponatremia. Acidosis. DM II with CKD. Anemia in CKD. Acute cystitis. P/ Continue current POC and Medications. Acute HD today. Next HD Sunday. Titrate insulin to improve BG control. Agree with abx. Follow up cultures. No NSAIDs. AM labs. Daily weight. Plan for placement at the [facility].
[2018-09-05 05:42] LABS: Absolute Lymphocytes (CBC) 0.7 K/uL (0.7-4.9); Basophils % 0.9 % (0-1.3); Hematocrit 29.8 % (36.0-45.0); Lymphocytes % 11.1 % (15.3-44.8); MPV 9.1 fL (7.6-11.3); Monocytes % 18.5 % (3.3-12.3)
[2018-09-05 05:57] LABS: Bilirubin Total 2.4 mg/dL (0.2-1.0); Magnesium 2.1 mg/dL (1.8-2.4); Phosphorus 2.5 mg/dL (2.5-4.9); Potassium 3.5 mmol/L (3.5-5.1); Protein, Total 5.7 g/dL (6.4-8.2); Uric Acid 3.7 mg/dL (2.6-6.0)
[2018-09-05] MEDS ORDERED: CALCITROL 0.25 MCG CAP PO SCH (09:00)
[2018-09-05] MEDS ORDERED: VITAMIN D 5,000 UNIT CAP PO SCH (09:00)
[2018-09-05] MEDS ORDERED: PANTOPRAZOLE 40MG TABLET PO SCH (09:00)
[2018-09-05] MEDS: INSULIN -REGULAR HUMAN 50 UNIT/0.5 ML ML SQ SCH ×3 (09:02→16:58)
[2018-09-05] MEDS: LACTULOSE 20 GM/30 ML UCUP PO SCH ×2 (09:03→15:24)
[2018-09-05] MEDS: SEVELAMER CARBONATE 800 MG TABLET PO SCH ×3 (09:05→16:59)
[2018-09-05] MEDS: SPIRONOLACTONE 25 MG TABLET PO SCH (09:06)
--- NOTE | 2018-09-05 11:17 | P.PN ---
Subjective Date of Service: 09/05/18 Chief Complaint: pt was transferred from another hospital for HD Patient seen and examined at bedside with RN. Chart reviewed. Case discussed with general surgery and nephrology at this time. Status post HD catheter placement and has already started on hemodialysis here in hospital. No complaints to offer overnight. Review of Systems 10-point ROS is otherwise unremarkable Physical Examination - Vital Signs Temperature: 98.6 F Blood Pressure: 180/73 Pulse: 85 Respirations: 18 Pulse Ox (%): 96 - Physical Exam General: Alert, In no apparent distress Respiratory: Clear to auscultation bilaterally, Normal air movement Cardiovascular: Regular rate/rhythm, Normal S1 S2 Gastrointestinal: Normal bowel sounds, No tenderness Musculoskeletal: No tenderness Integumentary: Rash(es), Skin breakdown, Tenderness/swelling, Erythema Neurological: Normal speech, Normal tone, Normal affect Lymphatics: No axilla or inguinal lymphadenopathy - Studies Laboratory Data (last 24 hrs) 09/05/18 05:21: Sodium 141, Potassium 3.5, BUN 19 H D, Creatinine 2.55 H D, Glucose 209 H, Uric Acid 3.7, Phosphorus 2.5, Magnesium 2.1, Total Bilirubin 2.4 H, AST 62 H, ALT 23, Alkaline Phosphatase 508 H 09/05/18 05:21: WBC 6.4, Hgb 9.8 L, Hct 29.8 L, Plt Count 146 L 09/04/18 10:57: Sodium 138, Potassium 3.7, BUN 42 H, Creatinine 3.93 H, Glucose 254 H, Total Bilirubin 1.9 H, AST 61 H, ALT 22, Alkaline Phosphatase 511 H 09/04/18 10:57: WBC 7.2, Hgb 8.9 L, Hct 27.9 L, Plt Count 143 L Medications List Reviewed: Yes Assessment And Plan - Current Problems (Diagnosis) (1) End stage renal disease Current Visit: Yes Status: Acute Plan: Patient now with end-stage renal disease requiring hemodialysis. -status post hemodialysis catheter placement POD 3 -started on hemodialysis -general surgery consulted. Appreciated recommendations at this time -nephrology consulted. Appreciated recommendations at this time -case management consulted to set up outpatient chair time -BUN and creatinine improving after starting hemodialysis (2) Type 2 diabetes mellitus Current Visit: Yes Status: Chronic Plan: Insulin sliding scale and Accu-Cheks Qualifiers: Diabetes mellitus regional intermodal truck driver insulin use: without regional intermodal truck driver use Diabetes mellitus complication status: with kidney complications Diabetes mellitus complication detail: with chronic kidney disease Chronic kidney disease stage : stage 5, not on chronic dialysis Qualified Code(s): E11.22 - Type 2 diabetes mellitus with diabetic chronic kidney disease; N18.5 - Chronic kidney disease, stage 5 (3) Hypertension Current Visit: Yes Status: Chronic Plan: Restarted on home medication. Had to be readjusted due to initiation of hemodialysis. Blood pressure has been stable here in the hospital Qualifiers: Hypertension type: essential hypertension Qualified Code(s): I10 - Essential (primary) hypertension (4) Liver cirrhosis Current Visit: Yes Status: Chronic Plan: Patient with elevated meld score with poor prognosis Qualifiers: Hepatic cirrhosis type: unspecified hepatic cirrhosis Ascites presence: without ascites Qualified Code(s): K74.60 - Unspecified cirrhosis of liver - Plan Pending clinical improvement at this time. Status post HD catheter placement and now has been initiated on hemodialysis. Working with physical therapy and occupational therapy today. Will wait for chair time placement. Discharge Plan: Home Plan to discharge in: 48 Hours - Code Status/Comfort Care Code Status Assessed: Yes Critical Care: No
--- NOTE | 2018-09-05 15:07 | P.DS ---
Admission Date: 08/31/18 Discharge Date: 09/05/18 Disposition: ROUTINE DISCHARGE Discharge Condition: GOOD Reason for Admission: pt was transferred from another hospital for HD Consultations: Nephrology General surgeon Procedures: Tunnel catheter placed on - Problems (1) End stage renal disease Current Visit: Yes Status: Acute (2) Type 2 diabetes mellitus Current Visit: Yes Status: Chronic Qualifiers: Diabetes mellitus skilled nursing insulin use: without metal machinist use Diabetes mellitus complication status: with kidney complications Diabetes mellitus complication detail: with chronic kidney disease Chronic kidney disease stage : stage 5, not on chronic dialysis Qualified Code(s): E11.22 - Type 2 diabetes mellitus with diabetic chronic kidney disease; N18.5 - Chronic kidney disease, stage 5 (3) Hypertension Current Visit: Yes Status: Chronic Qualifiers: Hypertension type: essential hypertension Qualified Code(s): I10 - Essential (primary) hypertension (4) Liver cirrhosis Current Visit: Yes Status: Chronic Qualifiers: Hepatic cirrhosis type: unspecified hepatic cirrhosis Ascites presence: without ascites Qualified Code(s): K74.60 - Unspecified cirrhosis of liver Brief History of Present Illness: 77 y/o woman with PMhx of DM,CKD,hepatorenal syndrom,liver cirrhosis who was transferred from [facility] for HD,pt was admitted for worsening renal failure and hyponatremia and was found with low Hgb .pt is [place] resident and mainly bed bound.pt was managed in [facility] for anemia and was given 2 units PRBC and for metabolic acidosis was given bicar with ivf hydration but her renal function continued to worsens and decission was made to start the pt on HD discussed with DR Poole and he recommended sx consult to place HD catheter which can be done tomorrow at the time of my assessment pt denied any complains and was oriented to self only Hospital Course: Overall during the hospital stay patient remained stable Patient was initially admitted to the hospital from another hospital after was found to have acute kidney injury secondary to declining chronic condition. Patient was admitted to have a HD catheter placed and start hemodialysis. General surgery was consulted. Patient had a HD catheter placement. Patient did well overall postprocedure. Patient was started on hemodialysis. At which point case management was consulted to arrange for chair time. Patient had chair time setup for her Sunday at 1:00 p.m. at [facility] at that time patient was then discharged back to [facility] where she is a resident from. Patient remained stable while here in the hospital no acute concerns were noted. All other chronic conditions remained stable while here in the hospital. Vital Signs/Physical Exam: Temp Pulse Resp BP Pulse Ox 98.1 F 72 18 178/78 H 98 09/05/18 12:00 09/05/18 12:00 09/05/18 12:00 09/05/18 12:00 09/05/18 12:00 General: Alert, In no apparent distress HEENT: Atraumatic, PERRLA, EOMI Neck: Supple, JVD not distended Respiratory: Clear to auscultation bilaterally, Normal air movement Cardiovascular: Regular rate/rhythm, Normal S1 S2 Gastrointestinal: Normal bowel sounds, No tenderness Musculoskeletal: No tenderness Integumentary: No rashes Neurological: Normal speech, Normal tone, Normal affect Lymphatics: No axilla or inguinal lymphadenopathy Laboratory Data at Discharge: WBC 6.4 K/uL (4.3-10.9) 09/05/18 05:21 Hgb 9.8 g/dL (12.0-15.0) L 09/05/18 05:21 Hct 29.8 % (36.0-45.0) L 09/05/18 05:21 Plt Count 146 K/uL (152-406) L 09/05/18 05:21 PT 15.3 SECONDS (9.5-12.5) H 09/02/18 06:22 INR 1.31 09/02/18 06:22 Sodium 141 mmol/L (136-145) 09/05/18 05:21 Potassium 3.5 mmol/L (3.5-5.1) 09/05/18 05:21 BUN 19 mg/dL (7-18) H D 09/05/18 05:21 Creatinine 2.55 mg/dL (0.55-1.3) H D 09/05/18 05:21 Glucose 209 mg/dL (74-106) H 09/05/18 05:21 Uric Acid 3.7 mg/dL (2.6-6.0) 09/05/18 05:21 Phosphorus 2.5 mg/dL (2.5-4.9) 09/05/18 05:21 Magnesium 2.1 mg/dL (1.8-2.4) 09/05/18 05:21 Total Bilirubin 2.4 mg/dL (0.2-1.0) H 09/05/18 05:21 AST 62 U/L (15-37) H 09/05/18 05:21 ALT 23 U/L (12-78) 09/05/18 05:21 Alkaline Phosphatase 508 U/L (45-117) H 09/05/18 05:21 Home Medications: Insulin Glargine Human [Lantus*] 30 unit SQ BID 08/31/18 Lactulose 40 gm PO TID 08/31/18 Lovastatin 10 mg PO BEDTIME 08/31/18 Mirtazapine [Remeron*] 15 mg PO BEDTIME 08/31/18 Pantoprazole [Protonix Tab*] 20 mg PO DAILY 08/31/18 Rifaximin [Xifaxan] 550 mg PO BID 08/31/18 Spironolactone [Aldactone*] 25 mg PO DAILY #30 tab 09/05/18 New Medications: Spironolactone [Aldactone*] 25 mg PO DAILY #30 tab Diet: Regular Activity: Ad lauren Followup: Jorge Andrea DO [ACTIVE - CAN ADMIT] - 1 Week
--- NOTE | 2018-09-05 19:47 | P.PN ---
Date of Service: 09/05/18 Vital Signs Temp Pulse Resp BP Pulse Ox 98.3 F 87 18 147/67 H 97 09/05/18 16:00 09/05/18 16:00 09/05/18 16:00 09/05/18 16:00 09/05/18 16:00 Lab Results (last 24 hrs) 09/05/18 16:27: POC Glucose 251 H 09/05/18 11:16: POC Glucose 280 H 09/05/18 07:14: POC Glucose 226 H 09/05/18 05:21: Sodium 141, Potassium 3.5, Chloride 105, Carbon Dioxide 28, BUN 19 H D, Creatinine 2.55 H D, Estimated GFR 18 L, Glucose 209 H, Uric Acid 3.7, Calcium 8.1 L, Phosphorus 2.5, Magnesium 2.1, Total Bilirubin 2.4 H, AST 62 H, ALT 23, Alkaline Phosphatase 508 H, Serum Total Protein 5.7 L, Albumin 3.0 L, Globulin 2.7, Albumin/Globulin Ratio 1.1 09/05/18 05:21: WBC 6.4, RBC 3.40 L, Hgb 9.8 L, Hct 29.8 L, MCV 87.6, MCH 29.0, MCHC 33.0, RDW 19.1 H, Plt Count 146 L, MPV 9.1, Neutrophils % 68.5, Lymphocytes % 11.1 L, Monocytes % 18.5 H, Eosinophils % 1.0, Basophils % 0.9, Absolute Neutrophils 4.4, Absolute Lymphocytes 0.7, Absolute Monocytes 1.2, Absolute Eosinophils 0.1, Absolute Basophils 0.1 09/04/18 20:03: POC Glucose 255 H Microbiology Results 09/01/18 12:30 Catheterized Urine [place] Count - Final >100,000 CFU/ML. 09/01/18 12:30 Catheterized Urine - Final Assessment/ Plan: Nephrology. CPS stable without CP or SOB. No acute events. Feeling better and stronger. Vitals, medications, blood work and imaging reviewed in the chart. NAD. MMM. Neck supple. CTA. RRR. Soft Abd +BS Distended. No C/C. LE Edema trace. Scattered ecchymoses. Na 134; K 4.4 A/ ESRD on HD. Hyponatremia. Acidosis. DM II with CKD. Anemia in CKD. Acute cystitis. P/ Continue current POC and Medications. Next HD Sunday. Titrate insulin to improve BG control. Agree with abx. Follow up cultures. No NSAIDs. AM labs. Daily weight. Placement at the [facility] approved.
[2018-09-06] MEDS ORDERED: MEDIHONEY 44 ML TOPICAL TUBE TOP SCH (09:00)
== END 2018-09-05 19:02 | DRG 673 ==
LOC: 2ND 16:17
PROVIDERS: ADMIT Internal Medicine; ATTEND Family Medicine
PROC: 02HV33Z Insertion of Infusion Device into Superior Vena Cava, Percutaneous Approach (ICD-10-PCS; 2018-09-02)
PROC: B5181ZA Fluoroscopy of Superior Vena Cava using Low Osmolar Contrast, Guidance (ICD-10-PCS; 2018-09-02)
PROC: 0JH63XZ Insertion of Tunneled Vascular Access Device into Chest Subcutaneous Tissue and Fascia, Percutaneous Approach (ICD-10-PCS; principal; 2018-09-02 09:30)
PROC: 5A1D70Z Performance of Urinary Filtration, Intermittent, Less than 6 Hours Per Day (ICD-10-PCS; 2018-09-03)
DX: N17.9 Acute kidney failure, unspecified (principal); K76.7 Hepatorenal syndrome; I12.0 Hypertensive chronic kidney disease with stage 5 chronic kidney disease or end stage renal disease; E87.2 Acidosis; E87.1 Hypo-osmolality and hyponatremia; N39.0 Urinary tract infection, site not specified; E46 Unspecified protein-calorie malnutrition; N30.00 Acute cystitis without hematuria; N18.6 End stage renal disease; K74.60 Unspecified cirrhosis of liver; D63.1 Anemia in chronic kidney disease; D69.6 Thrombocytopenia, unspecified; E11.22 Type 2 diabetes mellitus with diabetic chronic kidney disease; E78.5 Hyperlipidemia, unspecified; Z23 Encounter for immunization; Z74.01 Bed confinement status; Z68.24 Body mass index [BMI] 24.0-24.9, adult; Z79.4 Long term (current) use of insulin
CPT/HCPCS: 36415; 71045; 76000; 80048; 80053; 81003; 81015; 82140; 82962; 83735; 84100; 84550; 85025; 85610; 86317; 86704; 86705; 86706; 87086; 87088; 87340; 90935; 97110; 97163; 97530; 99251; C1752; J0690; J0696; J1644; J2250; J2405; J2704; J3010